=== PATIENT | male | born 1950 | race Caucasian/White ===

== ENCOUNTER → 2018-03-25 16:54 | Outpatient (CLI) | payer BC, SELFPAY ==
[2017-10-13 15:19] VITALS: BMI 41.8
[2018-03-25 18:06] LABS: PSA,Total- Diagnostic 0.03 ng/mL (0.0-4.0)
== END ==
PROVIDERS: Family Provider Preventive Medicine Occupational Medicine; PCP Preventive Medicine Occupational Medicine; Referring Provider Urology; Visit Provider Urology
DX: C61 Malignant neoplasm of prostate (principal)
CPT/HCPCS: 36415; 84153

== ENCOUNTER → 2018-12-30 10:09 | Outpatient (CLI) | payer BC, SELFPAY ==
[2018-10-05 10:48] VITALS: BMI 41.8
[2018-12-30 11:17] LABS: PSA,Total- Diagnostic 0.04 ng/mL (0.0-4.0)
== END ==
PROVIDERS: Family Provider Preventive Medicine Occupational Medicine; PCP Preventive Medicine Occupational Medicine; Referring Provider Urology; Visit Provider Urology
DX: C61 Malignant neoplasm of prostate (principal)
CPT/HCPCS: 36415; 84153

== ENCOUNTER → 2019-11-07 11:22 | Outpatient (CLI) | payer BC, SELFPAY ==
[2019-10-05 14:45] VITALS: BMI 40.4
[2019-11-07 11:51] LABS: Absolute Lymphocyte Count 1.73 X10^3/uL (0.83-4.51); Absolute Neutrophil Count 8.2 X10^3/uL (2.0-7.7); Basophil# 0.04 X10^3/uL; Basophil% 0.4 % (0-1); Eosinophil# 0.23 X10^3/uL; Eosinophils% 2.1 % (0-5); Hematocrit 43.7 % (40-54); Hemoglobin 13.7 g/dL (13.0-16.5); Lymphocyte # 1.73 X10^3/ul (4.0); Lymphocyte % 15.5 % (19-41); Mean Corp Hgb Conc 31.4 g/dL (32-36); Mean Corpuscular Hgb 29.3 pg (27.0-32.0); Mean Corpuscular Volume 93.4 fL (80-94); Mean Platelet Vol. 10.5 fl (6.2-12.0); Monocyte# 0.76 X10^3/uL; Monocyte% 6.8 % (0-10); NRBC Flagged by Analyzer 0 % (0-5); Neutrophil # 8.23 X10^3/uL (2.7-7.7); Neutrophil % 73.6 % (47-70); Platelet Count 233 K/mm3 (150-450); RBC Distribution Width CV 14.6 % (11.6-14.6); RBC Distribution Width SD 50.3 fl (35.1-43.9); Red Blood Count 4.68 M/mm3 (4.6-6.2); White Blood Count 11.2 K/mm3 (4.4-11.0)
[2019-11-07 11:55] LABS: ALB/GLOB Ratio 0.9 RATIO (0.9-2.4); AST(SGOT) 18 U/L (15-37); Alanine Aminotransfer ALT/SGPT 21 U/L (16-61); Albumin, Serum 3.4 g/dL (3.2-5.0); Alkaline Phosphatase 192 U/L (45-117); Anion Gap 6 (5-15); BUN 22 mg/dL (7-18); BUN/Creat Ratio 17.1 RATIO (10-20); Calcium,Total 9.3 mg/dL (8.5-10.1); Chloride 108 mmol/L (98-107); Creatinine, Serum 1.29 mg/dL (0.70-1.30); EST Glomerular Filtration Rate 59 mL/min (>60); Est Glom Filt Rate - Afr Amer 71 mL/min (>60); Globulin 3.8 g/dL (2.2-4.2); Glucose 108 mg/dL (74-106); PSA,Total- Diagnostic 0.09 ng/mL (0.0-4.0); Potassium 3.9 mmol/L (3.5-5.1); Protein, Total 7.2 g/dL (6.4-8.2); Sodium Level 143 mmol/L (136-145)
== END ==
PROVIDERS: Internal Medicine Medical Oncology; PCP Preventive Medicine Occupational Medicine; Referring Provider Urology; Visit Provider Urology
DX: C61 Malignant neoplasm of prostate (principal); C79.51 Secondary malignant neoplasm of bone
CPT/HCPCS: 36415; 80053; 84153; 85025

== ENCOUNTER → 2020-02-06 15:49 | Outpatient (CLI) | payer BC, SELFPAY ==
[2019-10-05 14:45] VITALS: BMI 40.4
[2020-02-06 17:03] LABS: PSA,Total- Diagnostic 0.19 ng/mL (0.0-4.0)
== END ==
PROVIDERS: PCP Preventive Medicine Occupational Medicine; Referring Provider Urology; Visit Provider Urology
DX: C61 Malignant neoplasm of prostate (principal)
CPT/HCPCS: 36415; 84153

== ENCOUNTER → 2020-05-08 12:06 | Outpatient (CLI) | payer BC, SELFPAY ==
[2019-10-05 14:45] VITALS: BMI 40.4
[2020-05-08 14:07] LABS: PSA,Total- Diagnostic 0.34 ng/mL (0.0-4.0)
== END ==
PROVIDERS: PCP Preventive Medicine Occupational Medicine; Referring Provider Urology; Visit Provider Urology
DX: C61 Malignant neoplasm of prostate (principal)
CPT/HCPCS: 36415; 84153

== ENCOUNTER → 2020-06-11 08:52 | Outpatient (CLI) | payer BC, SELFPAY ==
[2019-10-05 14:45] VITALS: BMI 40.4
--- NOTE | 2020-06-11 08:54 | NM_ITS ---
CLINICAL: 69-year-old male with reported history of carcinoma of the prostate. WHOLE BODY 99m Tc MDP RADIONUCLIDE BONE SCINTIGRAPHY COMPARISON: Whole body bone scintigraphy study dated 12/11/2016 FINDINGS: Following the intravenous administration of 27.0 mCi of 99m Tc MDP, whole body bone images reveal: 1. Increased radiopharmaceutical concentration is defined in the mid cervical spine posteriorly on the right, acromioclavicular and sternoclavicular compartments of both shoulders, fifth lumbar vertebra posteriorly on the right and left, knees bilaterally, right ankle, the right mid and forefoot, the left midfoot. 2. The remaining skeletal structures are scintigraphically unremarkable with normal-appearing renal images and urinary bladder activity identified. Enhanced tracer concentration is observed in the lesser trochanteric aspect of the left proximal femur most consistent with periostitis and/or trochanteric bursitis. There is asymmetric soft tissue thickening noted in the left lower extremity with facilitated uptake persistently visualized noted within the medial and to lesser extent lateral soft tissue compartments of the left lower extremity from the anatomic level of the proximal to distal tibial diaphysis. NM/Bone Scan Whole Body IMPRESSION: 1. The increase in radiopharmaceutical concentration observed in the cervical and lumbar spine, bilateral shoulders, right left knees, the right ankle, the bilateral midfoot, the right forefoot is most consistent with degenerative arthritis. 2. Soft tissue findings defined in the left lower extremity are unchanged compared to the examination dated 12/11/2016. 3. Overall compared to the previous whole body bone scintigraphy study dated 12/11/2016, there is no significant interval change. No current typical scintigraphic evidence of diffuse axial skeletal metastatic disease is defined on the present examination. Electronically Signed: Tomas Chavez DO at 22:46 EDT Tel , Service support ,
== END ==
PROVIDERS: PCP Preventive Medicine Occupational Medicine; Referring Provider Urology; Visit Provider Urology
DX: C61 Malignant neoplasm of prostate (principal)
CPT/HCPCS: 78306; A9503

== ENCOUNTER → 2020-09-26 07:59 | Outpatient (CLI) | payer BC, SELFPAY ==
[2019-10-05 14:45] VITALS: BMI 40.4
--- NOTE | 2020-09-26 08:12 | BD_ITS ---
STUDY: DUAL ENERGY X-RAY ABSORPTIOMETRY / DXA REASON FOR EXAM: Male, 69 years old. 733.00OsteoporosisBONE DENSITY REASON FOR EXAM. History of prostate cancer. TECHNIQUE: Bone Mineral Density (BMD) measurements of lumbar spine and bilateral hips were obtained. COMPARISON: None. FINDINGS: Lumbar Spine (L1-L4): g/cm2 (0.909) / T-score (-1.7) / Z-score (-0.8) Findings are suggestive of osteopenia with a moderate fracture risk. Left Femur Total: g/cm2 (0.908) / T-score (-0.8) / Z-score (-0.1) Left Femoral Neck: g/cm2 (0.739) / T-score (-1.4) / Z-score (-0.2) Right Femur Total: g/cm2 (0.962) / T-score (-0.5) / Z-score (0.2) Right Femoral Neck: g/cm2 (0.795) / T-score (-1.0) / Z-score (0.2) BD/Dexa Bone Density Study IMPRESSION: The patient is considered osteopenic as outlined below according to World [employer] Organization (WHO) criteria with a moderate fracture risk. Reference Information: The T-score is the number of standard deviations above or below the standard which is normal for young adults at their peak bone mineral density. The World Health Organization (WHO) interprets the T-scores as follows: Above -1 Normal bone density Between -1 and -2.5 Osteopenia Equal to / or below -2.5 Osteoporosis As a practical clinical guideline, osteopenia may be graded as follows: Mild -1 through -1.5 Moderate -1.6 through -2.0 Severe -2.1 through -2.4 The Z-score is the number of standard deviations above or below age-matched controls. A Z-score of less than -1.5 would be considered abnormal. References: 1. NIH Osteoporosis and Related Bone Diseases www osteo.org 2. International Society for Clinical Densitometry www iscd.org 3. National Osteoporosis Foundation www nof.org Electronically Signed: Kenneth Bailon MD at 20:15 EDT , Service support ,
== END ==
PROVIDERS: PCP Preventive Medicine Occupational Medicine; Referring Provider Urology; Visit Provider Urology
DX: M81.8 Other osteoporosis without current pathological fracture (principal); Z85.46 Personal history of malignant neoplasm of prostate
CPT/HCPCS: 77080

== ENCOUNTER → 2020-12-04 13:44 | Outpatient (CLI) | payer BC, SELFPAY ==
[2020-12-04 15:45] LABS: PSA,Total- Diagnostic 1.15 ng/mL (0.0-4.0)
== END ==
PROVIDERS: PCP Preventive Medicine Occupational Medicine; Referring Provider Urology; Visit Provider Urology
DX: C61 Malignant neoplasm of prostate (principal)
CPT/HCPCS: 36415; 84153

== ENCOUNTER → 2022-03-11 | Outpatient (CLI) | payer BC, SELFPAY ==
--- NOTE | 2022-03-11 08:32 | CT_ITS ---
STUDY: CT CHEST, ABDOMEN T PELVIS WITH CONTRAST REASON FOR EXAM: Male, 71 years old. PROSTATE CANCER 7 YRS AGO. PRIOR PROSTECTOMY AND CHEMO. RISING PSA NOW RADIATION DOSAGE (If Supplied By Facility): CTDIvol = ( 23.96 ) mGy, DLP = ( 2154.48 ) mGycm TECHNIQUE: Transaxial imaging was performed following intravenous administration of IV 100mL Isovue-300. Individualized dose optimization techniques were used for this CT. COMPARISON: CT abdomen and pelvis December 19, 2016. FINDINGS: CHEST Lung bases are incompletely imaged within the [id number]. There is no demonstrated pleural abnormality. Normal heart and pericardium. Calcified mediastinal nodes. Calcified bilateral hilar nodes. Normal unenhanced pulmonary arteries. Normal aorta arch and descending thoracic aorta. Multiple sclerotic lesions noted throughout the thoracic spine and ribs. There is no demonstrated abnormality of the visualized upper abdomen. ABDOMEN The visualized lung bases are unremarkable. The visualized portions of the heart are within normal limits. Normal liver. Cholelithiasis. Normal spleen. Normal pancreas. Normal bilateral adrenal glands. 2 cm simple right renal cortical cyst. No further follow-up required as it appears simple/benign. Normal left kidney. Normal visualized stomach. Normal small intestine. Colonic diverticulosis. The appendix is visualized and appears normal. Normal abdominal aorta. Normal inferior vena cava. Normal retroperitoneum. Fat-containing umbilical hernia. Multiple sclerotic lesions noted throughout the thoracolumbar spine demonstrated interval progression especially the L2 vertebral body. PELVIS Normal urinary bladder. Normal visualized small intestine. Normal visualized colon. There is no pelvic fluid. There is no pelvic lymphadenopathy or mass lesion. Normal visualized pelvic arteries. Normal abdominal wall. Sclerotic lesions noted within the S1 vertebral body CT/CT Chest, Abd, Pel w/Contrast IMPRESSION: Cholelithiasis. Sclerotic lesions in thoracolumbar spine, ribs and pelvis. This demonstrates interval progression consistent with bony metastatic disease of the prostate. Electronically Signed: Ricci Fry MD at 23:37 EST ,
== END | disposition home or self-care (01) ==
PROVIDERS: PCP Preventive Medicine Occupational Medicine; Referring Provider Nurse Practitioner Family; Visit Provider Nurse Practitioner Family
DX: C61 Malignant neoplasm of prostate (principal); C79.51 Secondary malignant neoplasm of bone; K80.20 Calculus of gallbladder without cholecystitis without obstruction
CPT/HCPCS: 71260; 74177; Q9967

== ENCOUNTER → 2022-03-14 | Outpatient (CLI) | payer BC, SELFPAY ==
--- NOTE | 2022-03-14 09:16 | NM_ITS ---
CLINICAL: 71-year-old male with history of primary prostate carcinoma. WHOLE BODY 99m Tc MDP RADIONUCLIDE BONE SCINTIGRAPHY COMPARISON: Previous whole body bone scintigraphy study dated 06/11/2020 FINDINGS: Following the intravenous administration of 25.7 mCi of 99m Tc MDP, whole body bone images reveal: 1. Increased radiopharmaceutical concentration is newly identified and persistently visualized in the cervical, thoracic and lumbar spine, the posterior sacrum, the right sacroiliac joint, both shoulders, the visualized knee articulations bilaterally, the right ankle. 2. Facilitated uptake is noted in the right posterior seventh rib. 3. The remaining skeletal structures are scintigraphically unremarkable with normal-appearing renal images and urinary bladder activity identified. Uptake remains expressed in the medial and lateral soft tissue compartments of the left lower extremity, unchanged compared to the examination dated 06/11/2020. NM/Bone Scan Whole Body IMPRESSION: 1. The increase in radiopharmaceutical concentration both newly apparent and redemonstrate in the cervical, thoracic and lumbar spine, sacrum, the right sacroiliac joint, the shoulders bilaterally, the right-left knees and right ankle are most consistent with degenerative arthrosis. Plain film radiography correlation is recommended in the thoracic and upper lumbar spine. 2. Increased uptake noted in the right posterior seventh rib is may represent trauma-fracture. Plain film radiography correlation may also be of benefit in this location. 3. Overall compared to the previous whole body bone scintigraphy study dated 06/11/2020, newly identified increased uptake noted in the thoracic and lumbar spine, the right posterior seventh rib warrant plain film radiography correlation as defined above. Electronically Signed: Tomas Chavez, at 9:48 EST ,
== END | disposition home or self-care (01) ==
LOC: NM 09:14
PROVIDERS: PCP Preventive Medicine Occupational Medicine; Visit Provider Nurse Practitioner Family
DX: C61 Malignant neoplasm of prostate (principal); C79.51 Secondary malignant neoplasm of bone
CPT/HCPCS: 78306; A9503

== ENCOUNTER → 2023-08-21 | Outpatient (CLI) | payer BC, SELFPAY ==
--- NOTE | 2023-08-21 16:44 | CT_ITS ---
STUDY: CT ABDOMEN AND PELVIS WITH CONTRAST REASON FOR EXAM: Male, 72 years old. ABDOMINAL PAIN-PROSTSTE CA RADIATION DOSAGE (If Supplied By Facility): CTDIvol = ( 17.04 ) mGy, DLP = ( 1339.00 ) mGycm TECHNIQUE: Transaxial images were obtained from the dome of the diaphragm to the symphysis pubis with oral contrast. Oral and amp; IV Readi-CAT and amp; 100mL Isovue-300 was administered. Sagittal and coronal images were reconstructed. Individualized dose optimization techniques were used for this CT. COMPARISON: None. FINDINGS: The visualized lung bases are unremarkable. The visualized portions of the heart are within normal limits. Normal liver. There is a solitary gallstone. Normal spleen. Normal pancreas. Normal bilateral adrenal glands. Normal right kidney. Normal left kidney. Normal visualized stomach. Normal small intestine. There are multiple colonic diverticula consistent with diverticulosis. The appendix is visualized and appears normal. Normal abdominal aorta. Normal inferior vena cava. Normal retroperitoneum. Normal urinary bladder. There is a small umbilical hernia containing fat. Multiple sclerotic lesions within the thoracolumbar spine worrisome for blastic metastases. CT/Abdomen/Pelvis WITH Contrast IMPRESSION: 1. Suspect blastic skeletal metastases but no lymphadenopathy. 2. Cholelithiasis. 3. Sigmoid diverticulosis without diverticulitis. Electronically Signed: Tomas Cagle MD at 17:28 EDT ,
== END | disposition home or self-care (01) ==
LOC: CT 16:42
PROVIDERS: PCP Preventive Medicine Occupational Medicine; Referring Provider Internal Medicine Medical Oncology; Visit Provider Internal Medicine Medical Oncology
DX: C61 Malignant neoplasm of prostate (principal); C79.51 Secondary malignant neoplasm of bone; R10.30 Lower abdominal pain, unspecified
CPT/HCPCS: 74177; Q9967

== ENCOUNTER → 2023-08-24 | Outpatient (CLI) | payer BC, SELFPAY ==
--- NOTE | 2023-08-24 08:48 | NM_ITS ---
CLINICAL: 72-year-old male with history of primary prostate carcinoma. WHOLE BODY 99m Tc MDP RADIONUCLIDE BONE SCINTIGRAPHY COMPARISON: Previous whole body bone scintigraphy study dated 03/14/2022 FINDINGS: Following the intravenous administration of 24.7 mCi of 99m Tc MDP, whole body bone images reveal: 1. Increased radiopharmaceutical concentration is newly apparent in the left anterior first fourth and sixth ribs heterogeneous in presentation, persistently defined in the right posterior seventh rib. 2. Facilitated tracer uptake is noted in the acromioclavicular, glenohumeral and sternoclavicular compartments of both shoulders, the bilateral knees, the right ankle, the right-left midfoot and right forefoot, the eighth through 12th thoracic vertebra. 3. The remaining skeletal structures are scintigraphically unremarkable with normal-appearing renal images and urinary bladder activity identified. Currently visualized uptake in the eighth and ninth right posterior ribs oriented in the longitudinal plane, and right anterior chest wall at the costochondral junction most consistent with trauma-fracture. NM/Bone Scan Whole Body IMPRESSION: 1. Both newly defined and persistently visualized increased uptake noted in the left anterior and right posterior ribs likely represents osteoblastic turnover attributed to skeletal metastatic disease. Plain film radiography correlation may be of benefit. 2. Degenerative arthritis is defined in the bilateral shoulders, right-left knees, the right ankle, the midfoot bilaterally, the right forefoot, the lower thoracic spine. 3. Overall compared to the examination dated 03/14/2022, there is potential expression of skeletal metastatic disease. Electronically Signed: Tomas Chavez DO at 12:37 EDT ,
== END | disposition home or self-care (01) ==
PROVIDERS: PCP Preventive Medicine Occupational Medicine; Referring Provider Internal Medicine Medical Oncology; Visit Provider Internal Medicine Medical Oncology
DX: C61 Malignant neoplasm of prostate (principal)
CPT/HCPCS: 78306; A9503

== ENCOUNTER 2024-11-18 09:56 | Day surgery (SDC) | payer BC, SELFPAY ==
--- NOTE | 2024-11-11 16:30 | PAT.ANESEVAL ---
Pre-Assessment Diagnosis/Proposed Procedure Planned Operative Procedure(s): INSERTION VASCULAR PORT RIGHT POSS LEFT Anesthesia History Anesthesia History - osteopathic neurologist: Anesthesia History - osteopathic neurologist Hx Hospitalization No 11/11/24 10:03 Any Problems With Anesthesia No 11/11/24 10:03 Cholinesterase deficiency No 11/11/24 10:03 You/Your Family Experience No 11/11/24 10:03 fever (hyperthermia) with Relationship Recent Exposure to Contagious No 10/18/14 06:52 Disease Does patient have nerve No 11/11/24 10:03 stimulator Patient instructed to have device shut off --Does patient have Pacemaker or ICD? When Was Last Pacemaker Check QUESTION #4 FULL TEXT: You/Your Family Experience fever (hyperthermia) with Anesthesia Last Oral Intake Last Oral intake: Last Oral Intake NPO since Meds taken in AM with sips of water? Meds patient instructed to take am of surgery PONV PONV - osteopathic neurologist: PONV - osteopathic neurologist Female No 11/11/24 10:03 HX of Motion Sickness No 11/11/24 10:03 HX of N/V After Surgery No 11/11/24 10:03 Non-Smoker Yes 11/11/24 10:03 Duration of Surgery greater No 11/11/24 10:03 than 60 minutes Number of Risk Factors 1 11/11/24 10:03 PONV Score Low Risk 11/11/24 10:03 Height & Weight Height & Weight: Anesthesia: Height & Weight Height 5 ft 9 in 11/09/24 10:34 Respiratory Assessment Respiratory Assessment - osteopathic neurologist: Respiratory Tract Infection Hx - osteopathic neurologist Hx Respiratory Tract Infection No 11/11/24 10:03 STOP Sleep Apnea STOP Sleep Apnea - osteopathic neurologist: STOP Sleep Apnea - osteopathic neurologist Hx Hypertension Yes: CONTROLLED WITH MEDS 11/11/24 10:03 Hx Sleep Apnea Yes 11/11/24 10:03 CPAP No 11/11/24 10:03 BIPAP Yes 11/11/24 10:03 Do you snore loudly (louder than talking or can be heard Do you often feel tired/ fatigued/ sleepy during daytime? Has anyone observed you stop breathing during sleep? STOP Results Positive 11/11/24 10:03 QUESTION #5 FULL TEXT : Do you snore loudly (louder than talking or can be heard through closed doors)? Tobacco Use History Tobacco Use History - osteopathic neurologist: Tobacco Use History - osteopathic neurologist Tobacco Use Smoking Status Never smoker 11/11/24 10:03 Hx Tobacco Use No 11/11/24 10:03 Years Smoking Packs Smoked per Day Smoking Cessation Date was within the last 15 years Hx Smoking Cessation Date Hx Smoking Cessation Counseling Hematologic Medial History Hematologic Hx - osteopathic neurologist: Hematologic Medical Hx - trading assistant Hx of Blood Transfusion No 11/11/24 10:03 Hx of Transfusion in last 3 No 11/11/24 10:03 Months Date of Last Transfusion (if within last 3 months) Ever experience any problems No 11/11/24 10:03 with transfusion(s)? Specify any problems Hx of Preganancy in last 3 N/A 11/11/24 10:03 Months Nurse Filling Out Transfusion DSCHRIBER 11/11/24 10:03 & Questions: Date: 11/11/24 11/11/24 10:03 Time: 10:04 11/11/24 10:03 Patient unable to answer at this time (ie. confused, unrespo /Reproduction History /Reproductive History - osteopathic neurologist: /Reproductive Hx- osteopathic neurologist Hx Now No 11/11/24 10:03 Gestational Age (in weeks): EDC: Hx Hx Para Hx Section SAB No 11/11/24 10:03 [facility], [facility] Medical History (Updated 11/11/24 @ 10:22 by Verónica Olmos) History of open leg wound Wears glasses Cancer Alcohol use History of steroid therapy Low iron High cholesterol Pulmonary embolism Back pain Migraine headache History of hiatal hernia History of diverticulitis Gastric reflux Non-smoker BiPAP (biphasic positive airway pressure) dependence Shortness of breath on exertion History of pain when walking Skin cancer Ulcer Hyperlipidemia Hypertension Home Medications ?Medication ?Instructions ?Recorded ?Last Taken ?Type Olmesartan/Hydrochlorothiazide 1 tab PO DAILY 10/10/14 Unknown History [Benicar Hct 40-12.5 Mg Tab] carvedilol 12.5 mg tablet 12.5 mg PO BID 10/10/14 10/17/14 22:00 History diltiazem HCl 300 mg 300 mg PO QHS 10/10/14 Unknown History capsule,extended release 24 hr multivitamin with folic acid 400 1 tab PO DAILY 01/18/15 Unknown History mcg tablet (Thera) pantoprazole 40 mg tablet,delayed 40 mg PO DAILY 01/18/15 Unknown History release acetaminophen 325 mg tablet 325 mg PO Q6H PRN PRN Pain 05/15/16 Unknown History (Tylenol) ipratropium bromide 42 mcg (0.06 2 spray BID 05/15/16 Unknown History %) nasal spray prednisone 5 mg tablet 5 mg PO BID 03/09/17 Unknown History abiraterone 500 mg tablet 1,000 mg (2 x 500 mg) PO DAILY #60 12/21/23 Unknown Rx TABLETS Allergy/AdvReac Type Severity Reaction Status Date / Time Penicillins (PCN) Allergy Severe Unknown Verified 11/11/24 09:59 corn Allergy Intermediate Hives Verified 11/11/24 09:59 Family History Father Skin cancer Heart disease Surgical History (Updated 11/11/24 @ 10:15 by Verónica Olmos) Hx of right cataract extraction Hx of left cataract extraction History of esophagogastroduodenoscopy (EGD) Hx of colonoscopy History of tonsillectomy History of prostatectomy Social History Smoking Status: Never smoker Audit: Pertinent Findings Pertinent Findings EKG Perinent findings: EKG 10 October 2014. Sinus rhythm with occasional premature ventricular complexes. Otherwise normal EKG Recommendation Anesthesia Recommendation Anesthesia recommendation: OPTIMIZED for anesthesia
[2024-11-18] VITALS (10 sets, daily range): BP systolic 120–144; BP diastolic 59–99; PULSE 60–67; RESP 16; TEMP 36.4–37.2; O2SAT 93–99; BMI 37.6
--- NOTE | 2024-11-18 10:07 | PCM.HP.BLA ---
History and Physical Date of Admission: 11/18/24 Date of Service: 11/16/24 MR#: [id number] Acct: [id number] Name: SOL NEWBERRY Rep #: [id number] : 1950 Provider: Dr. Cadence Marques MD Age/Sex: 74/M Location: [facility] Status: Signed Intake Vital Signs 11/09/2509:34 11/16/2512:29 Height 5 ft 9 in 5 ft 9 in Weight: 263 lb 1 oz 262 lb 8 oz BMI 38.8 38.7 BP 128/80 H 128/80 H Blood Pressure Location Rt brachial Rt brachial Position Sitting Sitting Respiration 18 18 Pulse 64 63 Pulse Source Monitor Monitor Temp 97.6 F L 97.6 F L Temp Source Temporal Pulse Oximetry (%) 94 98 Oxygen Delivery Method room air room air Intake Visit Reasons: PORT PLACEMENT Chief Complaint: port placement Accompanied by: Is patient in pain?: No Allergies Penicillins (PCN) Allergy (Severe, Verified 11/16/24 13:31) Unknown corn Allergy (Intermediate, Verified 11/16/24 13:31) Hives Medications ?Medication ?Instructions ?Recorded ?Confirmed ?Type Olmesartan/Hydrochlorothiazide 1 tab PO DAILY 10/10/14 11/16/24 History [Benicar Hct 40-12.5 Mg Tab] carvedilol 12.5 mg tablet 12.5 mg PO BID 10/10/14 11/16/24 History diltiazem HCl 300 mg 300 mg PO QHS 10/10/14 11/16/24 History capsule,extended release 24 hr multivitamin with folic acid 400 1 tab PO DAILY 01/18/15 11/16/24 History mcg tablet (Thera) pantoprazole 40 mg tablet,delayed 40 mg PO DAILY 01/18/15 11/16/24 History release acetaminophen 325 mg tablet 325 mg PO Q6H PRN PRN Pain 05/15/16 11/16/24 History (Tylenol) ipratropium bromide 42 mcg (0.06 2 spray BID 05/15/16 11/16/24 History %) nasal spray prednisone 5 mg tablet 5 mg PO BID 03/09/17 11/16/24 History abiraterone 500 mg tablet 1,000 mg (2 x 500 mg) PO DAILY #60 12/21/23 11/16/24 Rx TABLETS Have you fallen in the past year?: No PFSH Medical History History of open leg wound Wears glasses Cancer Alcohol use History of steroid therapy Low iron High cholesterol Pulmonary embolism Back pain Migraine headache History of hiatal hernia History of diverticulitis Gastric reflux Non-smoker BiPAP (biphasic positive airway pressure) dependence Shortness of breath on exertion History of pain when walking Skin cancer Ulcer Hyperlipidemia Hypertension Surgical History Hx of right cataract extraction Hx of left cataract extraction History of esophagogastroduodenoscopy (EGD) Hx of colonoscopy History of tonsillectomy History of prostatectomy Family History Father Skin cancer Heart disease Social History Smoking Status: Never smoker HPI HPI HPI: 74-year-old male presents for port placement due to metastatic prostate cancer. Patient is planning to start treatment on 11/21. ROS General General: No weight change, appetite, fatigue, colon cancer, breast cancer or weakness HEENT HEENT: No difficulty swallowing, eye injury, eye surgery, swollen glands or hoarseness Endo Endocrine: No thyroid disease, diabetes mellitus, thyroid cancer, Hair loss, heat intolerance or cold intolerance Skin Skin: No rash or changing moles Musc Musculoskeletal: Yes back problems; No arthritis, rheumatoid arthritis, gout or joint pain Cardio Cardiovascular: Yes high blood pressure; No murmur, pacemaker, heart disease, atrial fibrillation, heart attack, heart stent, palpitations, shortness of breath with exertion or chest pain Psych Psychiatric: No depression, anxiety or hearing voices Resp Respiratory: No shortness of breath, Yes sleep apnea, No cough, No COPD, No asthma, No emphysema and No wheezing Gastro Gastrointestinal: No abdominal pain, No nausea or vomiting, No diarrhea, No constipation, No blood in stool, Yes acid reflux, Yes hemorrhoids, No ulcers, No gallbladder problem and No black,tarry stools Dago Hematologic: No blood thinners, No blood disorders, No bleeding, No anemia and No blood clots Neuro Neurologic: No numbness, No tingling and No weakness Exam Const General: cooperative, healthy appearing, comfortable and no acute distress [facility] Head: normocephalic and atraumatic Neck Neck: supple Chest Other: Palpation bilateral upper chest normal Resp Effort & Inspection: normal respiratory effort Cardio Rate: regular rate GI Inspection: non-distended Skin General: no rashes or lesions noted Neuro General: CN's II-XI intact bilaterally Extrem General: no clubbing Psych Mental Status: mental status grossly normal Attitude: cooperative Assessment and Plan Assessment and Plan (1) Encounter for care related to Port-a-Cath: Status: Acute (2) Prostate cancer metastatic to bone: Status: Chronic Comment: Prostate cancer stage IV, bony disease now on Eligard, Zytiga and prednisone. CT 03/11/2022 shows progressive disease. Bone scan 03/14/2022 shows new lesions in T5 and L2, R 7th rib. PSMA PET/CT on 03/25/2022 showed activity in T5 and L2 vertebral bodies. S/P SBRT to T5 and L2 from 04/18/2022 to 04/28/2022. PSA elise to 12. Comes for follow up. Bone scan on 08/24/2023 reviewed, shows new L anterior rib activities and R posterior rib activity. CT a/p on 08/21/2023 reviewed, shows no adenopathy. S/P SBRT to T7, left anterior ribs, and left ischium, PSA 2.1 on 06/23/2024. He had good response to SBRT. PSA elise to 23. Had PSMA PET/CT done, comes for follow up. PSMA PET/CT shows multiple hypermetabolic activities in axial, appendicular skeleton, ?retroperitoneal node. Progressive disease. Discussed further management-adding chemotherapy-Taxotere to [facility] oskar. Pt agreed. Plan I have discussed above with the patient- Port-a-Cath placement. Right possible left IJ Patient has been counseled as to the risks/benefits of the procedure. I have explained the risks of the surgery, including but not limited to: infection, bleeding, injury to any blood vessels/nerves, injury to lungs (such as pneumothorax or hemothorax and need for chest tube), not having any access, nonfunctioning of port due to thrombosis, infection of port, etc. the patient understands and agrees to proceed. I have answered all the patient's questions to the patient?s satisfaction and the patient has no further questions. Cadence Marques M.D. Pager: [phone] [facility] [address] [place] [address], [facility], [address] [place] [address] Office: [phone] Coding Level of Care Code Off vis,new,level 3 Diagnoses Encounter for care related to Port-a-Cath Z45.2 Prostate cancer metastatic to bone C61; C79.51 Clinical Quality Measures Falls Risk Screening/Assistive Devices Have you fallen in the past year?: No 11/17/24 1202 <Electronically signed by Cadence Marques MD> Date Cadence Marques MD
--- NOTE | 2024-11-18 10:42 | PCM.PRE.AN2 ---
ASA Classification* ASA Classification ASA Classification: 2 Assessment & Plan Anesthesia* Anesthesia Assessment Anesthesia Assessment: Discussed sedation and/or anesthesia options, risks, benefits, and alternatives with patient/parents/legal guardian/POA. Questions invited. The patient/parents/legal guardian/POA seems to understand and agrees to proceed with anesthesia plan. Reviewed the physical assessment, medical history, allergy history and patient home medications list prior to surgery/procedure/anesthetic and documented any changes. Performed airway and anesthesia risk assessments. Anesthesia Type Anesthesia Type: MAC Anesthesia Focused Assessment* Temperature: 97.6 F Pulse Rate: 65 Blood Pressure: 131/73 Respiratory Rate: 16 Pulse Ox: 99 Airway Assessment Mouth opens: >3 cm Mallampati Score: II Labs Anesthesia Preop lab: CBC WBC, (4.4-11.0) 7.8 K/mm3 10/11/24, 16:43 RBC, (4.6-6.2) 4.89 M/mm3 10/11/24, 16:43 Hgb, (13.0-16.5) 12.9 g/dL L 10/11/24, 16:43 Hct, (40-54) 41.0 % 10/11/24, 16:43 Plt Count, (150-450) 262 K/mm3 10/11/24, 16:43 CHEMISTRY Potassium, (3.3-5.1) 4.6 mmol/L 10/11/24, 13:43 Sodium, (133-145) 138 mmol/L 10/11/24, 13:43 Magnesium, (1.6-2.6) 1.9 mg/dL 03/14/21, 13:17 Phosphorus, (2.5-4.9) 2.9 mg/dL 03/14/21, 13:17 BUN, (4-19) 26 mg/dL H 10/11/24, 13:43 Creatinine, (0.70-1.20) 1.37 mg/dL H 10/11/24, 13:43 Glucose, (70-99) 90 mg/dL 10/11/24, 13:43 COAG Pre-Assessment Diagnosis/Proposed Procedure Planned Operative Procedure(s): INSERTION VASCULAR PORT RIGHT POSS LEFT Anesthesia History Anesthesia History - utility assembler: Anesthesia History - utility assembler Hx Hospitalization No 11/11/24 10:03 Any Problems With Anesthesia No 11/11/24 10:03 Cholinesterase deficiency No 11/11/24 10:03 You/Your Family Experience No 11/11/24 10:03 fever (hyperthermia) with Relationship Recent Exposure to Contagious No 11/18/24 10:24 Disease Does patient have nerve No 11/11/24 10:03 stimulator Patient instructed to have device shut off --Does patient have Pacemaker No 11/18/24 10:24 or ICD? When Was Last Pacemaker Check QUESTION #4 FULL TEXT: You/Your Family Experience fever (hyperthermia) with Anesthesia Last Oral Intake Last Oral intake: Last Oral Intake NPO since 08:30 11/18/24 10:24 Meds taken in AM with sips of Yes 11/18/24 10:24 water? Meds patient instructed to take am of surgery PONV PONV - utility assembler: PONV - utility assembler Female No 11/11/24 10:03 HX of Motion Sickness No 11/11/24 10:03 HX of N/V After Surgery No 11/11/24 10:03 Non-Smoker Yes 11/11/24 10:03 Duration of Surgery greater No 11/11/24 10:03 than 60 minutes Number of Risk Factors 1 11/11/24 10:03 PONV Score Low Risk 11/11/24 10:03 Height & Weight Height & Weight: Anesthesia: Height & Weight Height 5 ft 10 in 11/18/24 10:24 Weight: 119 kg 11/18/24 10:24 Body Mass Index (BMI) 37.6 11/18/24 10:24 Respiratory Assessment Respiratory Assessment - utility assembler: Respiratory Tract Infection Hx - utility assembler Hx Respiratory Tract Infection No 11/11/24 10:03 STOP Sleep Apnea STOP Sleep Apnea - utility assembler: STOP Sleep Apnea - utility assembler Hx Hypertension Yes: CONTROLLED WITH MEDS 11/11/24 10:03 Hx Sleep Apnea Yes 11/11/24 10:03 CPAP No 11/11/24 10:03 BIPAP Yes 11/11/24 10:03 Do you snore loudly (louder than talking or can be heard Do you often feel tired/ fatigued/ sleepy during daytime? Has anyone observed you stop breathing during sleep? STOP Results Positive 11/11/24 10:03 QUESTION #5 FULL TEXT : Do you snore loudly (louder than talking or can be heard through closed doors)? Tobacco Use History Tobacco Use History - utility assembler: Tobacco Use History - utility assembler Tobacco Use Smoking Status Never smoker 11/11/24 10:03 Hx Tobacco Use No 11/11/24 10:03 Years Smoking Packs Smoked per Day Smoking Cessation Date was within the last 15 years Hx Smoking Cessation Date Hx Smoking Cessation Counseling Hematologic Medial History Hematologic Hx - utility assembler: Hematologic Medical Hx - offal roller Hx of Blood Transfusion No 11/11/24 10:03 Hx of Transfusion in last 3 No 11/11/24 10:03 Months Date of Last Transfusion (if within last 3 months) Ever experience any problems No 11/11/24 10:03 with transfusion(s)? Specify any problems Hx of Preganancy in last 3 N/A 11/11/24 10:03 Months Nurse Filling Out Transfusion DSCHRIBER 11/11/24 10:03 & Questions: Date: 11/11/24 11/11/24 10:03 Time: 10:04 11/11/24 10:03 Patient unable to answer at this time (ie. confused, unrespo /Reproduction History /Reproductive History - utility assembler: /Reproductive Hx- utility assembler Hx Now No 11/11/24 10:03 Gestational Age (in weeks): EDC: Hx Hx Para Hx Section SAB No 11/11/24 10:03 Active Medications Active Medications: Current Medications Generic Name Dose Route Start Last Admin Trade Name Freq PRN Reason Stop Dose Admin Clindamycin Phosphate 900 mg in 50 mls @ 75 mls/hr 11/18/24 11:45 Cleocin IV 11/18/24 12:24 INTRAOP ONE Lactated Ringer's 1,000 mls @ 15 mls/hr 11/18/24 10:45 IV .Q48H [place] PFSH Medical History History of open leg wound Wears glasses Cancer Alcohol use History of steroid therapy Low iron High cholesterol Pulmonary embolism Back pain Migraine headache History of hiatal hernia History of diverticulitis Gastric reflux Non-smoker BiPAP (biphasic positive airway pressure) dependence Shortness of breath on exertion History of pain when walking Skin cancer Ulcer Hyperlipidemia Hypertension Home Medications ?Medication ?Instructions ?Recorded ?Last Taken ?Type Olmesartan/Hydrochlorothiazide 1 tab PO DAILY 10/10/14 11/18/24 History [Benicar Hct 40-12.5 Mg Tab] carvedilol 12.5 mg tablet 12.5 mg PO BID 10/10/14 11/18/24 History diltiazem HCl 300 mg 300 mg PO QHS 10/10/14 Unknown History capsule,extended release 24 hr multivitamin with folic acid 400 1 tab PO DAILY 01/18/15 Unknown History mcg tablet (Thera) pantoprazole 40 mg tablet,delayed 40 mg PO DAILY 01/18/15 11/17/24 History release acetaminophen 325 mg tablet 325 mg PO Q6H PRN PRN Pain 05/15/16 Unknown History (Tylenol) ipratropium bromide 42 mcg (0.06 2 spray BID 05/15/16 Unknown History %) nasal spray prednisone 5 mg tablet 5 mg PO BID 03/09/17 11/18/24 History abiraterone 500 mg tablet 1,000 mg (2 x 500 mg) PO DAILY #60 12/21/23 11/18/24 Rx TABLETS Allergy/AdvReac Type Severity Reaction Status Date / Time Penicillins (PCN) Allergy Severe Unknown Verified 11/16/24 13:31 corn Allergy Intermediate Hives Verified 11/16/24 13:31 Family History Father Skin cancer Heart disease Surgical History Hx of right cataract extraction Hx of left cataract extraction History of esophagogastroduodenoscopy (EGD) Hx of colonoscopy History of tonsillectomy History of prostatectomy Social History Smoking Status: Never smoker Review of Systems (Anesthesia) ROS Narrative System reviewed and no additional complaints, except as documented.
[2024-11-18] MEDS: Lactated Ringers 1,000 ML 15 ML IV (10:59)
[2024-11-18] MEDS: Lidocaine 1% (5 ml sdv) 5 ML Vial IV (12:22)
[2024-11-18] MEDS: Midazolam 2 MG/2 ML Syringe IV (12:39)
[2024-11-18] MEDS: Lidocaine 1% /Epi 1:100 (20ml) 20 ML Vial (12:41)
--- NOTE | 2024-11-18 12:56 | RAD_ITS ---
PROCEDURE: CHEST 1 VIEW (PORTABLE) 11/18/2024 REASON FOR EXAM: PORT TECHNIQUE: Frontal view of the chest. COMPARISON: None FINDINGS: Hardware: Port overlying right chest wall with tip in cavoatrial junction. Heart: Heart size is mildly enlarged. Lungs: Bibasilar atelectasis. Patchy opacity within left lower lung. No pneumothorax. Trace right pleural effusion. Bones: Degenerative changes of visualized spine and bilateral shoulder joints. RAD/Chest 1 View (Portable) IMPRESSION: Port overlying right chest wall with tip in cavoatrial junction. No sizable la rge pneumothorax is visualized. Reading Location: [id number]
--- NOTE | 2024-11-18 12:56 | PCM.OPRPT ---
Operative Report (Standard) Operative Information Date of Procedure: 11/18/24 Pre-Operative Diagnosis: Z45.2, metastatic prostate cancer Post-Operative Diagnosis: Same Surgery/Procedure Performed: Placement of right IJ Port-A-Cath Use of ultrasound Use of fluoroscopy administration assistant: No Type of Anesthesia: Local MAC RN Documented Start/Stop Times: Operation Date: 11/18/24 11:45 Case Time Into Pre-Op 11/18/24 10:22 Out of Pre-Op 11/18/24 12:10 Anesthesia Start 11/18/24 12:11 Into Room 11/18/24 12:11 Procedure Start 11/18/24 12:27 Procedure End 11/18/24 12:52 Anesthesia End 11/18/24 12:55 Out of Room 11/18/24 12:55 Procedure Start Time: 12:27 Procedure Stop Time: 12:52 Select all DRAINS/GRAFTS/IMPLANTS that apply: Implanted device Implanted device details: [employer] PowerPort isp M.R.I. 6Fr Lot [id number] Special Medications: Clindamycin 900 mg IV x 1 Estimated Blood Loss: < 10 cc Specimen collected: No Description of surgery: After informed consent was given, the patient was brought to the operating room and placed in the supine position. Appropriate time out protocol was followed. Patient was then given IV conscious sedation for anesthesia. The patient's right upper chest and neck were then prepped with a surgical skin preparation and sterile surgical drapes were placed. After proper landmarks were ascertained, the skin at the upper right chest area was then infiltrated with 1:1 mixture of 1% lidocaine with epinephrine and 0.5% marcaine. A needle trocar was then inserted into the right internal jugular vein with ultrasound guidance-multiple vessels were viewed with u/s and the right IJ was chosen-- and there was good aspiration of venous blood. A wire was then threaded into the needle trocar and this was visualized under fluoroscopy to ensure that the wire was in the superior vena cava. Once this was done, then the needle trocar was removed. A small skin lasha was made with an 11 blade knife at the wire entrance site. The dilator with the introducer sheath attached was then placed over the wire into the right internal jugular vein via the Seldinger technique and this was visualized under fluoroscopy. The dilator and sheath were in proper position as visualized by fluoroscopy. A subcutaneous pocket was then created caudad to the catheter insertion site. A transverse skin incision was made after the skin and subcutaneous tissues were infiltrated with local anesthetic. Blunt dissection was then used to create a space large enough for placement of the subcutaneous port. The catheter was then tunneled into the subcutaneous pocket. The wire and dilator were then removed. The catheter was then threaded into the introducer sheath and was positioned with its tip at the junction of the superior vena cava and the right atrium as visualized under fluoroscopy. The excess catheter was transected. The catheter was then attached to the subcutaneous port using manufacturers guidelines. The catheter was flushed with a heparin saline mixture prior to placement. Hemostasis was carefully controlled with electrocautery. The port was sutured to the subcutaneous fascia using 2-0 Vicryl suture at two sites. The port was then placed in the subcutaneous pocket. The incision were reapproximated with interrupted subdermal 3-0 vicryl sutures. The skin was reapproximated with 3-0 nylon suture in a interrupted fashion. Steristrips were used for reinforcement of the skin closure at IJ insertion site and a sterile opsite dressings were applied. The patient tolerated the procedure well. Surgical Findings: See operative report Complications Complications: No
--- NOTE | 2024-11-18 12:56 | EX.PCM.DISCH ---
Discharge Instructions Procedure Port-A-Cath Diet Discharge Diet: Light diet - advance as tolerated Activity May shower in (days): 5 (Keep port site clean and dry x5 days. Neck incision okay to get wet after 1 day. Okay to lower shower and upper sponge bath. OR okay to taper off port site with a Ziploc bag to shower) Lifting Restrictions: No lifting > 15 pounds for 3 days with the arm on the side of the port Dressing / Incision Call your doctor if your incision/area has: Continuous Slow Oozing, Sudden Increased Bleeding, Increased Pain/ Swelling, Increased Redness, Foul Smelling Discharge and Swelling at the incision site Call your doctor if you observe: Fever of 101 or Higher Change Dressing in: 2 days (2-3 days- port site; ok to remove neck opsite in 1 day) Follow Up Care Please Follow Up With: Cadenec Marques MD When: In 10 days for permanent suture removal?call office for appointment Test Results: Test results from this visit will be discussed in further detail at your follow-up appointment, if applicable. Discharge Plan Admission Attending Provider: Cadence Marques Primary Care Provider: Oren Dorman Instructions Print Language: Greenlandic Discharge Orders/Prescriptions Prescriptions: New tramadol 50 mg tablet 50 mg PO Q6H PRN (Reason: pain) 2 Days Qty: 5 0RF Continued carvedilol 12.5 MG tablet 12.5 mg PO BID Patient Comments: BLOOD PRESSURE diltiazem HCl 300 MG capsule 300 mg PO QHS Patient Comments: BLOOD PRESSURE/HEART Olmesartan/Hydrochlorothiazide [Benicar Hct 40-12.5 Mg Tab] 1 TAB tablet 1 tab PO DAILY Patient Comments: BLOOD PRESSURE pantoprazole 40 MG tablet 40 mg PO DAILY multivitamin with folic acid [Thera] 1 TABLET tablet 1 tab PO DAILY prednisone 5 MG tablet 5 mg PO BID acetaminophen [Tylenol] 325 MG tablet 325 mg PO Q6H PRN PRN (Reason: Pain) ipratropium bromide 1 SPRAY spray,non-aerosol 2 spray NASAL BID abiraterone 500 mg tablet 1,000 mg PO DAILY Qty: 60 10RF Referrals / Follow Up: Oren Dorman DO [Primary Care Provider, Family Practice] Disposition Disposition (needs filled in before D/C Order can be placed): Home, Self Care
--- NOTE | 2024-11-18 12:59 | PCM.POST.ANE ---
Anesthesia: Postop Eval I Current Vital Signs Temperature: 98.2 F Pulse Rate: 67 Blood Pressure: 128/99 Respiratory Rate: 16 Pulse Ox: 93 Oxygen Delivery Method: Room Air Assessment Airway patent: Yes Spontaneous unlabored respirations: Yes Mental status: Awake and Calm nausea: No Vomiting: No Anesthesia Complication: No Fluid Hydration Crystalloid volume administer (ml): 200 Total IV fluid infused: 200 Progress Note Anesthesia document: Postop Eval 1 completed: Yes
--- NOTE | 2024-11-18 13:17 | POSTOPAN2_ITS ---
Anesthesia Postop Eval I Sum Postop Eval Completion status Anesthesia document: Postop Eval 1 completed: Yes Anesthesia Postop Eval I Summary Anesthesia Postop Eval I Summary: Anesthesia Postop Eval I: Assessment Summary Airway patent Yes 11/18/24 13:01 TESTER ELECTRONIC SCALE.SHOF Spontaneous unlabored Yes 11/18/24 13:01 TESTER ELECTRONIC SCALE.SHOF respirations Mental status Awake,Calm 11/18/24 13:01 TESTER ELECTRONIC SCALE.SHOF nausea No 11/18/24 13:01 TESTER ELECTRONIC SCALE.SHOF Vomiting No 11/18/24 13:01 TESTER ELECTRONIC SCALE.SHOF Anesthesia Postop Eval I: Fluid Summary Crystalloid volume administer 200 11/18/24 13:01 TESTER ELECTRONIC SCALE.SHOF (ml) Colloids volume administered ( ml) Blood Product volume administered (ml) Total IV fluid infused 200 11/18/24 13:01 TESTER ELECTRONIC SCALE.SHOF Anesthesia Postop Eval I: Summary Notes Anesthesia Complication No 11/18/24 13:01 TESTER ELECTRONIC SCALE.SHOF Anesthesia Complication Comment: Post-operative progress note Anesthesia: Postop Eval II Evaluation Mental status: Awake Pain Level: 0 nausea: No Vomiting: No
--- NOTE | 2024-11-18 13:17 | PCM.POSTANE2 ---
Anesthesia Postop Eval I Sum Postop Eval Completion status Anesthesia document: Postop Eval 1 completed: Yes Anesthesia Postop Eval I Summary Anesthesia Postop Eval I Summary: Anesthesia Postop Eval I: Assessment Summary Airway patent Yes 11/18/24 13:01 PRINTING ROLLER HANDLER.SHOF Spontaneous unlabored Yes 11/18/24 13:01 PRINTING ROLLER HANDLER.SHOF respirations Mental status Awake,Calm 11/18/24 13:01 PRINTING ROLLER HANDLER.SHOF nausea No 11/18/24 13:01 PRINTING ROLLER HANDLER.SHOF Vomiting No 11/18/24 13:01 PRINTING ROLLER HANDLER.SHOF Anesthesia Postop Eval I: Fluid Summary Crystalloid volume administer 200 11/18/24 13:01 PRINTING ROLLER HANDLER.SHOF (ml) Colloids volume administered ( ml) Blood Product volume administered (ml) Total IV fluid infused 200 11/18/24 13:01 PRINTING ROLLER HANDLER.SHOF Anesthesia Postop Eval I: Summary Notes Anesthesia Complication No 11/18/24 13:01 PRINTING ROLLER HANDLER.SHOF Anesthesia Complication Comment: Post-operative progress note Anesthesia: Postop Eval II Evaluation Mental status: Awake Pain Level: 0 nausea: No Vomiting: No
== END 2024-11-18 13:23 | disposition home or self-care (01) ==
LOC: SDC 10:02 → AC 10:04
PROVIDERS: PCP Preventive Medicine Occupational Medicine; Referring Provider Surgery; Visit Provider Surgery
PROC: (CPT 36561; principal; 2024-11-18 11:30)
DX: Z45.2 Encounter for adjustment and management of vascular access device (principal); C79.51 Secondary malignant neoplasm of bone; C61 Malignant neoplasm of prostate; I10 Essential (primary) hypertension; K21.9 Gastro-esophageal reflux disease without esophagitis; E78.00 Pure hypercholesterolemia, unspecified; Z79.899 Other long term (current) drug therapy
CPT/HCPCS: 36561; 00532; 71045; 77001

== ENCOUNTER 2024-11-28 10:37 | Inpatient (IN) | payer BC, MEDICARE, SELFPAY ==
[2024-11-28] VITALS (23 sets, daily range): BP systolic 72–137; BP diastolic 37–81; PULSE 64–78; RESP 14–21; TEMP 36.5–37; O2SAT 87–99; BMI 37.5; BMI 38.9
[2024-11-28] MEDS: 0.9% Normal Saline (1000mL) 1,000 ML 1000 ML IV ×2 (11:00→12:34)
--- NOTE | 2024-11-28 11:05 | EKG12_ITS ---
Test Reason : Blood Pressure : */* mmHG Vent. Rate : 66 BPM Atrial Rate : 66 BPM P-R Int : 184 ms QRS Dur : 142 ms QT Int : 500 ms P-R-T Axes : 34 34 -8 degrees QTcB Int : 524 ms Normal sinus rhythm Right bundle branch block Abnormal ECG Confirmed by LEODAN TORRES, AMBROSIO ([id number]), state editor LISSETTE RAMOS ([id number]) on 11/30/2024 7:26:56 AM Referred By: Confirmed By: AMBROSIO ALCOCER MD
--- NOTE | 2024-11-28 11:06 | RAD_ITS ---
PROCEDURE: CHEST PA AND LATERAL 11/28/2024 REASON FOR EXAM: COUGH TECHNIQUE: Procedure Code: RADCXR Modality: DX Procedure: CHEST PA AND LATERAL COMPARISON: 11/18/2024. FINDINGS: Patchy [id number]-right consolidative opacities which may represent pneumonia or scar. No visualized pneumothorax. Trace bilateral pleural effusions. Right chest infusion port. The heart is unchanged in size. Acute osseous abnormalities. RAD/Chest PA and Lateral IMPRESSION: Pulmonary findings as above. Reading Location: [id number]
[2024-11-28 11:23] LABS: Hematocrit 33.3 % (40-54); Hemoglobin 11.0 g/dL (13.0-16.5); Immature Granulocytes Count 0.140 X10^3/uL (0.0-0.0); Mean Corp Hgb Conc 33.0 g/dL (32-36); Mean Corpuscular Volume 89.3 fL (80-94); Mean Platelet Vol. 10.6 fl (6.2-12.0); NRBC Flagged by Analyzer 0 % (0-5); Platelet Count 164 K/mm3 (150-450); RBC Distribution Width CV 17.9 % (11.6-14.6); RBC Distribution Width SD 58.9 fl (35.1-43.9); Red Blood Count 3.73 M/mm3 (4.6-6.2); White Blood Count 12.6 K/mm3 (4.4-11.0)
[2024-11-28 11:30] LABS: Prothrombin Time (Protime)PT. 15.1 SECONDS (11.7-14.9)
--- NOTE | 2024-11-28 11:30 | EDS_ITS ---
HPI History of Present Illness Chief Complaint: Hypotension Narrative Narrative: Chief complaint and HPI: History taken by patient as well as medical record. 74-year-old male with history of metastatic prostate cancer started on recent chemotherapy presents for evaluation of hypotension. Patient states she was on his way to receive chemo today when he was found to be hypotensive and sent to the emergency department. He states that on Thursday due to weakness he accidentally fell and broke his right lower extremity. Currently in a boot. States since Thursday he has had decreased appetite and intermittently taking narcotics. He denies any fever, chills, shortness of breath, chest pain, abdominal pain, nausea, vomiting, dysuria. States she has a chronic cough. On chart review, patient was diagnosed with prostate cancer in October 2014. Had a radical prostatectomy on 10/18/2014. Had a reoccurrence with previous rounds of chemotherapy and radiation. He just recently started Taxotere. Review of systems: See HPI Medications: As listed on the chart Allergies: As listed on the chart PFSH: Per chart Vital signs: As listed on the chart. Reviewed. Physical exam: Gen: A&O x3, NAD Head: Normocephalic, atraumatic Eyes: No sclera icterus, conjunctiva clear ENT: Dry mucous membranes Neck: Trachea midline, No JVD CV: RRR, no murmurs, no peripheral edema Resp: Lungs CTA BL, no w/r/c, on 2 L nasal cannula GI: Abd soft, non-distended, non-tender, no r/r/g Musc: Moves all extremities, no deformity, boot on the right lower extremity was removed-no swelling/erythema/warmth/rash/infection, DP/PT pulses +2 bilaterally, good capillary Skin: Warm, dry Neuro: Alert, oriented, grossly intact, sensation intact Psych: Cooperative, appropriate mood and affect [facility] Medical History History of open leg wound Wears glasses Cancer Alcohol use History of steroid therapy Low iron High cholesterol Pulmonary embolism Back pain Migraine headache History of hiatal hernia History of diverticulitis Gastric reflux Non-smoker BiPAP (biphasic positive airway pressure) dependence Shortness of breath on exertion History of pain when walking Skin cancer Ulcer Hyperlipidemia Hypertension Home Medications ?Medication ?Instructions ?Recorded ?Last Taken ?Type carvedilol 12.5 mg tablet 12.5 mg PO BID 10/10/1411/16 History diltiazem HCl 300 mg 300 mg PO QHS 10/10/1411/27 History capsule,extended release 24 hr multivitamin with folic acid 400 1 tab PO DAILY 11/25/24 History mcg tablet (Thera) abiraterone 500 mg tablet 1,000 mg (2 x 500 mg) PO RYNE LY #60 12/21/23 11/28/24 Rx TABLETS tramadol 50 mg tablet 50 mg PO Q6H PRN pain 2 days #5 11/18/24 11/27/24 Rx tabs gabapentin 600 mg tablet 600 mg PO Q12H 11/28/24 Unkn own History hydrocodone-acetaminophen 5-325mg 1 tab PO Q6H PRN maximiliano n 11/28/24 11/28/24 History 5mg-325mg valsartan 160 1 tab PO DAILY 11/28/24 Unkn own History mg-hydrochlorothiazide 12.5 mg tablet Allergy/AdvReac Type Severity Reaction Status Date / Time Penicillins (PCN) Allergy Severe Unknown Verified 11/28/24 10:38 corn Allergy Intermediate Hives Verified 11/28/24 10:38 Family History Father Skin cancer Heart disease Surgical History Hx of right cataract extraction Hx of left cataract extraction History of esophagogastroduodenoscopy (EGD) Hx of colonoscopy History of tonsillectomy History of prostatectomy Social History Smoking Status: Never smoker EXAM Physical Exam Const Vital Signs: 11/28/24 10:38 11/28/24 10:55 11/28/24 11:01 Temperature 97.7 F L 97.7 F L Temperature Source Oral Oral Pulse Rate 67 67 Respiratory Rate 16 19 H Respiratory Effort Respiratory Pattern Blood Pressure 75/48 L 72/60 L Blood Pressure Mean 57 64 Pulse Ox 92 87 97 Oxygen Delivery Method Room Air Room Air Nasal Cannula Oxygen Flow Rate (L/min) 2 11/28/24 11:05 11/28/24 11:07 11/28/24 11:36 Temperature 97.9 F Temperature Source Oral Pulse Rate 67 Respiratory Rate 15 Respiratory Effort Normal Respiratory Pattern Normal Blood Pressure 84/59 L Blood Pressure Mean 67 Pulse Ox 96 99 Oxygen Delivery Method Nasal Cannula Nasal Cannula Oxygen Flow Rate (L/min) 2 2 MDM MDM MDM Narrative Medical decision making narrative: 74-year-old male with history of metastatic prostate cancer started on recent chemotherapy presents for evaluation of hypotension. History taken by patient as well as medical record. See HPI. Patient states she was on his way to receive chemo today when he was found to be hypotensive and sent to the emergency department. He states that on Thursday due to weakness he accidentally fell and broke his right lower extremity. Currently in a boot. States since Thursday he has had decreased appetite and intermittently taking narcotics. He denies any fever, chills, shortness of breath, chest pain, abdominal pain, nausea, vomiting, dysuria. States she has a chronic cough. On presentation, patient was hypoxic at 88% on room air therefore was placed on 2 L nasal cannula. Hypotensive at 75/48. Afebrile. NS bolus ordered. Differential diagnosis includes but is not limited to dehydration, electrolyte abnormality, pneumonia, viral illness, narcotics side effect, chemotherapy side effect, UTI. EKG: Interpreted by me/EM physician: EKG shows normal sinus rhythm with right bundle branch block. Heart rate 66. Diagnostic: Interpreted by me/EM physician: Lab Data Labs: Laboratory Results - last 24 hr 11/28/24 11:00 WBC 12.6 H RBC 3.73 L Hgb 11.0 L Hct 33.3 L MCV 89.3 MCH 29.5 MCHC 33.0 RDW Std Deviation 58.9 H RDW Coeff of Aurelio 17.9 H Plt Count 164 MPV 10.6 Immature Gran % (Auto) 1.100 H Neut % (Auto) 84.6 H Lymph % (Auto) 6.7 L Jenkins % (Auto) 6.6 Eos % (Auto) 0.7 Baso % (Auto) 0.3 Absolute Neuts (auto) 10.6 H Absolute Lymphs (auto) 0.84 Nucleated RBC % 0 PT 15.1 H INR 1.2 APTT 30.0 Radiography Diagnostic Testing: Clinical Impression(s) from Imaging Studies Chest X-Ray 11/28/24 11:06 IMPRESSION: Pulmonary findings as above. Reading Location: [address] Discharge Plan Triage Chief Complaint: Hypotension ED Provider: Cr Weston Dx/Rx/DC Orders Prescriptions: No Action carvedilol 12.5 MG tablet 12.5 mg PO BID Patient Comments: BLOOD PRESSURE diltiazem HCl 300 MG capsule 300 mg PO QHS Patient Comments: BLOOD PRESSURE/HEART multivitamin with folic acid [Thera] 1 TABLET tablet 1 tab PO DAILY tramadol 50 mg tablet 50 mg PO Q6H PRN (Reason: pain) 2 Days Qty: 5 0RF gabapentin 600 mg tablet 600 mg PO Q12H Patient Comments: PT STATES HE QUIT TAKING A LONG TIME AGO hydrocodone-acetaminophen 5-325 mg tablet 1 tab PO Q6H PRN (Reason: pain) valsartan-hydrochlorothiazide 160-12.5 mg tablet 1 tab PO DAILY abiraterone 500 mg tablet 1,000 mg PO DAILY Qty: 60 10RF Primary Care Provider: Care Physician,No Primary Referrals: Oren Dorman DO [Non-Staff, Family Practice] Print Language: Australian
--- NOTE | 2024-11-28 11:30 | EX.ED.DYSGE1 ---
HPI History of Present Illness Chief Complaint: Hypotension Narrative Narrative: Chief complaint and HPI: History taken by patient as well as medical record. 74-year-old male with history of metastatic prostate cancer started on recent chemotherapy presents for evaluation of hypotension. Patient states she was on his way to receive chemo today when he was found to be hypotensive and sent to the emergency department. He states that on Thursday due to weakness he accidentally fell and broke his right lower extremity. Currently in a boot. States since Thursday he has had decreased appetite and intermittently taking narcotics. He denies any fever, chills, shortness of breath, chest pain, abdominal pain, nausea, vomiting, dysuria. States she has a chronic cough. On chart review, patient was diagnosed with prostate cancer in October 2014. Had a radical prostatectomy on 10/18/2014. Had a reoccurrence with previous rounds of chemotherapy and radiation. He just recently started Taxotere. Review of systems: See HPI Medications: As listed on the chart Allergies: As listed on the chart PFSH: Per chart Vital signs: As listed on the chart. Reviewed. Physical exam: Gen: A&O x3, NAD Head: Normocephalic, atraumatic Eyes: No sclera icterus, conjunctiva clear ENT: Dry mucous membranes Neck: Trachea midline, No JVD CV: RRR, no murmurs, no peripheral edema, right chest port without cellulitis Resp: Lungs CTA BL, no w/r/c, on 2 L nasal cannula GI: Abd soft, non-distended, non-tender, no r/r/g Musc: Moves all extremities, no deformity, boot on the right lower extremity was removed-no swelling/erythema/warmth/rash/infection, DP/PT pulses +2 bilaterally, good capillary Skin: Warm, dry Neuro: Alert, oriented, grossly intact, sensation intact Psych: Cooperative, appropriate mood and affect [facility] Medical History History of open leg wound Wears glasses Cancer Alcohol use History of steroid therapy Low iron High cholesterol Pulmonary embolism Back pain Migraine headache History of hiatal hernia History of diverticulitis Gastric reflux Non-smoker BiPAP (biphasic positive airway pressure) dependence Shortness of breath on exertion History of pain when walking Skin cancer Ulcer Hyperlipidemia Hypertension Home Medications ?Medication ?Instructions ?Recorded ?Last Taken ?Type carvedilol 12.5 mg tablet 12.5 mg PO BID 10/10/14 11/28/24 History diltiazem HCl 300 mg 300 mg PO QHS 10/10/14 11/27/24 History capsule,extended release 24 hr multivitamin with folic acid 400 1 tab PO DAILY 01/18/15 11/25/24 History mcg tablet (Thera) abiraterone 500 mg tablet 1,000 mg (2 x 500 mg) PO DAILY #60 12/21/23 11/28/24 Rx TABLETS tramadol 50 mg tablet 50 mg PO Q6H PRN pain 2 days #5 11/18/24 11/27/24 Rx tabs gabapentin 600 mg tablet 600 mg PO Q12H 11/28/24 Unknown History hydrocodone-acetaminophen 5-325mg 1 tab PO Q6H PRN pain 11/28/24 11/28/24 History 5mg-325mg valsartan 160 1 tab PO DAILY 11/28/24 Unknown History mg-hydrochlorothiazide 12.5 mg tablet Allergy/AdvReac Type Severity Reaction Status Date / Time Penicillins (PCN) Allergy Severe Unknown Verified 11/28/24 10:38 corn Allergy Intermediate Hives Verified 11/28/24 10:38 Family History Father Skin cancer Heart disease Surgical History Hx of right cataract extraction Hx of left cataract extraction History of esophagogastroduodenoscopy (EGD) Hx of colonoscopy History of tonsillectomy History of prostatectomy Social History Smoking Status: Never smoker EXAM Physical Exam Const Vital Signs: 11/28/24 10:38 11/28/24 10:55 11/28/24 11:01 Temperature 97.7 F L 97.7 F L Temperature Source Oral Oral Pulse Rate 67 67 Respiratory Rate 16 19 H Respiratory Effort Respiratory Pattern Blood Pressure 75/48 L 72/60 L Blood Pressure Mean 57 64 Pulse Ox 92 87 97 Oxygen Delivery Method Room Air Room Air Nasal Cannula Oxygen Flow Rate (L/min) 2 11/28/24 11:05 11/28/24 11:07 11/28/24 11:11 Temperature Temperature Source Pulse Rate 64 Respiratory Rate 16 Respiratory Effort Normal Respiratory Pattern Normal Blood Pressure Blood Pressure Mean Pulse Ox 96 96 Oxygen Delivery Method Nasal Cannula Oxygen Flow Rate (L/min) 2 11/28/24 11:15 11/28/24 11:15 11/28/24 11:15 Temperature Temperature Source Pulse Rate 76 Respiratory Rate 20 H Respiratory Effort Respiratory Pattern Blood Pressure 86/37 L 86/37 L 86/37 L Blood Pressure Mean 53 53 53 Pulse Ox 96 Oxygen Delivery Method Oxygen Flow Rate (L/min) 11/28/24 11:30 11/28/24 11:36 11/28/24 11:45 Temperature 97.9 F Temperature Source Oral Pulse Rate 67 Respiratory Rate 15 Respiratory Effort Respiratory Pattern Blood Pressure 84/59 L 84/59 L 96/52 L Blood Pressure Mean 69 67 66 Pulse Ox 99 Oxygen Delivery Method Nasal Cannula Oxygen Flow Rate (L/min) 2 11/28/24 11:45 11/28/24 12:00 11/28/24 12:15 Temperature Temperature Source Pulse Rate 66 Respiratory Rate 17 Respiratory Effort Respiratory Pattern Blood Pressure 96/52 L 106/53 L 89/50 L Blood Pressure Mean 66 68 62 Pulse Ox 94 Oxygen Delivery Method Oxygen Flow Rate (L/min) 11/28/24 12:17 11/28/24 12:30 11/28/24 12:45 Temperature Temperature Source Pulse Rate 67 66 65 Respiratory Rate 21 H 14 16 Respiratory Effort Respiratory Pattern Blood Pressure 106/56 L 96/51 L Blood Pressure Mean 71 66 Pulse Ox 94 94 Oxygen Delivery Method Oxygen Flow Rate (L/min) 11/28/24 13:00 11/28/24 13:05 11/28/24 14:00 Temperature 97.9 F Temperature Source Pulse Rate 64 64 67 Respiratory Rate 16 16 16 Respiratory Effort Respiratory Pattern Blood Pressure 97/56 L 97/56 L 113/64 Blood Pressure Mean 67 69 80 Pulse Ox 95 95 97 Oxygen Delivery Method Room Air Oxygen Flow Rate (L/min) MDM MDM MDM Narrative Medical decision making narrative: 74-year-old male with history of metastatic prostate cancer started on recent chemotherapy presents for evaluation of hypotension. History taken by patient as well as medical record. See HPI. Patient states she was on his way to receive chemo today when he was found to be hypotensive and sent to the emergency department. He states that on Thursday due to weakness he accidentally fell and broke his right lower extremity. Currently in a boot. States since Thursday he has had decreased appetite and intermittently taking narcotics. He denies any fever, chills, shortness of breath, chest pain, abdominal pain, nausea, vomiting, dysuria. States she has a chronic cough. On presentation, patient was hypoxic at 88% on room air therefore was placed on 2 L nasal cannula. Hypotensive at 75/48. Afebrile. NS bolus ordered. Differential diagnosis includes but is not limited to dehydration, electrolyte abnormality, pneumonia, viral illness, narcotics side effect, chemotherapy side effect, UTI. CBC shows leukocytosis of 12.6. Patient has baseline anemia of 11. Platelets unremarkable. INR unremarkable. CMP shows dehydration with NATHANIEL. BUN is 44 with creatinine of 4. Patient's previous creatinine earlier this month was 1.31. No transaminitis. Lactic acid unremarkable. Patient now meets sepsis criteria. Vancomycin and Levaquin ordered for suspected pneumonia. 30 cc/kg bolus ordered per ideal body weight. Troponin 330. May be secondary to hypotension as well as waiting on CTA to assess for PE. CTA of the chest shows large central pulmonary emboli in the right and left proximal and distal branches with occlusive components, acute pulmonary emboli within all lobes. Right heart enlargement consistent with decompensation. Atelectasis. 1.2 cm left pleural effusion. Diffuse blastic metastatic disease to thoracic spine and ribs. 50% compression deformity at T5. This was personally relayed to me by cardiology. Heparin started for PE. Repeat troponin 280. BNP elevated at 18,617. This is consistent with heart rate strain. Blood pressure has improved with fluids. Will place Ma catheter due to NATHANIEL and to obtain urine. Patient will warrant admission. He was updated of all results confirmed understand the plan. I spoke with the hospitalist who accepted admission. EKG: Interpreted by me/EM physician: EKG shows normal sinus rhythm with right bundle branch block. Heart rate 66. Diagnostic: Interpreted by me/EM physician: Chest x-ray was personally reviewed and interpreted by me, ED physician. Bilateral opacities. Left greater than right. Right port. Radiology in agreement. Impression: 1. Massive pulmonary emboli 2. Right heart strain secondary to #1 3. NATHANIEL 4. Elevated troponin secondary to #1 and #2 Lab Data Labs: Laboratory Results - last 24 hr 11/28/24 11/28/24 11:00 13:05 WBC 12.6 H RBC 3.73 L Hgb 11.0 L Hct 33.3 L MCV 89.3 MCH 29.5 MCHC 33.0 RDW Std Deviation 58.9 H RDW Coeff of Aurelio 17.9 H Plt Count 164 MPV 10.6 Immature Gran % (Auto) 1.100 H Neut % (Auto) 84.6 H Lymph % (Auto) 6.7 L [place] % (Auto) 6.6 Eos % (Auto) 0.7 Baso % (Auto) 0.3 Absolute Neuts (auto) 10.6 H Absolute Lymphs (auto) 0.84 Nucleated RBC % 0 PT 15.1 H INR 1.2 APTT 30.0 Sodium 133 Potassium 3.9 Chloride 95 L Carbon Dioxide 19.8 L Anion Gap 17 H BUN 44 H Creatinine 4.04 H Estim Creat Clear Calc 20.41 L Est GFR (MDRD) Non-Af 15 L BUN/Creatinine Ratio 10.9 Glucose 111 H Lactic Acid 1.1 Calcium 8.3 Total Bilirubin 0.80 AST 26 ALT 18 Alkaline Phosphatase 169 H Troponin T High Sens 330 H* Troponin T Hi Sens 2 Hr 280 H* [place] [address] H Total Protein 6.3 Albumin 3.4 Globulin 2.9 Albumin/Globulin Ratio 1.1 Procalcitonin 0.74 H Radiography Diagnostic Testing: Clinical Impression(s) from Imaging Studies Chest X-Ray 11/28/24 11:06 IMPRESSION: Pulmonary findings as above. Reading Location: [address] Chest CTA 11/28/24 11:44 IMPRESSION: There are large central pulmonary emboli in the right and left proximal and distal branches with occlusive components, acute pulmonary emboli within all lobes. There is right heart enlargement consistent with decompensation. There is atelectasis or scar at the right and left lung base. There is a 1.2 cm left pleural effusion. There is diffuse blastic metastatic disease to the thoracic spine and ribs. There is a 50% compression deformity at T5, age-indeterminate. Critical results were discussed with Dr. Carney by Dr. Green at the time of dictation. Reading Location: [facility] Discharge Plan Triage Chief Complaint: Hypotension ED Provider: Cr Weston Dx/Rx/DC Orders Primary Care Provider: Care Physician,No Primary
[2024-11-28 11:31] LABS: Partial Thromboplast Time 30.0 Seconds (24.1-36.2)
--- NOTE | 2024-11-28 11:39 | ED.RN ---
Dr. Carney notified of patient triggering for a sepsis alert and fluid resuscitation. Physician states she is not going to be ordering antibiotics at this time, and will await chest xray results before ordering antibiotics. Physician notified of WBC over 12 and reminded of patients new need for O2 on arrival to ED for spO2 of 87 earlier.
--- NOTE | 2024-11-28 11:44 | CT_ITS ---
PROCEDURE: CTA CHEST W/WO CONTRAST 11/28/2024 REASON FOR EXAM: PE, PNEUMONIA TECHNIQUE: Procedure Code: [id number] Modality: CT Procedure: CTA CHEST W/WO CONTRAST Multiplanar Sagittal and Coronal images were obtained. CONTRAST: Not reported One or more dose reduction techniques were used (e.g., Automated exposure control, adjustment of the mA and/or kV according to patient size, use of iterative reconstruction technique). RADIATION DOSE SUMMARY: DLP: 560 mGycm COMPARISON: March 11, 2022 FINDINGS: Hardware: None Lymph nodes: There is no pathologic adenopathy by size criteria Heart: Intact RV/LV Diameter Ratio: 1.2 Thoracic Aorta: Within normal limits Pulmonary Vessels: Main pulmonary artery Hounsfield units = 333. There are large central pulmonary emboli in the right and left proximal and distal branches with occlusive components, acute pulmonary emboli within all lobes. Lungs and Airways: There is atelectasis or scar at the right and left lung base. There is a 1.2 cm left pleural effusion. Pleura: There is no pneumothorax Upper Abdomen: Unremarkable Bones: There is diffuse blastic metastatic disease to the thoracic spine and ribs. There is a 50% compression deformity at T5, age-indeterminate. CT/CTA Chest W/WO Contrast IMPRESSION: There are large central pulmonary emboli in the right and left proximal and dis danitza branches with occlusive components, acute pulmonary emboli within all lobes. There is right heart enlargement consistent with decompensation. There is atelectasis or scar at the right and left lung base. There is a 1.2 cm left pleural effusion. There is diffuse blastic metastatic disease to the thoracic spine and ribs. There is a 50% compression deformity at T5, age-indeterminate. Critical results were discussed with Dr. Carney by Dr. Green at the time o f dictation. Reading Location: [facility]
[2024-11-28 11:51] LABS: Troponin T High Sensitivity 330 ng/L (<=22)
[2024-11-28] MEDS: levoFLOXacin IV 750 MG/150 ML BAG 100 MG IV (12:10)
[2024-11-28] MEDS: Vancomycin HCl 2,000 MG in 0.9% Normal Saline (500mL Bag) 500 ML 250 MG IV (12:34)
[2024-11-28 13:00] LABS: AST(SGOT) 26 U/L (<=37); Alanine Aminotransfer ALT/SGPT 18 U/L (<=46); Albumin, Serum 3.4 g/dL (3.4-4.8); Alkaline Phosphatase 169 U/L (40-129); Anion Gap 17 (5-15); BUN 44 mg/dL (4-19); BUN/Creat Ratio 10.9 RATIO (10-20); Calcium,Total 8.3 mg/dL (7.6-11.0); Carbon Dioxide 19.8 mmol/L (21.0-32.0); Chloride 95 mmol/L (98-108); Estimated Creatinine Clearance 20.41 ml/min (50-250); Globulin 2.9 g/dL (2.2-4.2); Glucose 111 mg/dL (70-99); Potassium 3.9 mmol/L (3.3-5.1); Pro- Brain NATRIURETIC PEPTIDE 18617 pg/mL (<=1800)
[2024-11-28] MEDS: HEPARIN/D5w 25,000 UNITS 25,000 UNITS/250 ML IV.SOLN. 13.8 UNITS CONT INF (13:01)
[2024-11-28] MEDS: 0.9% Normal Saline (500mL Bag) 500 ML 1000 ML IV (13:47)
[2024-11-28 13:55] LABS: Troponin T High Sens 2 HR 280 ng/L (<=22)
--- NOTE | 2024-11-28 14:06 | PCM.HP.STD ---
HPI - General General Date of Admission: 11/28/24 Date of Service: 11/28/24 Chief Complaint: Hypotension HPI Narrative SOL NEWBERRY, is a 74 M with a history of metastatic prostate cancer originally diagnosed in 2014 who presented to the emergency department at [facility] on 11/28/2024 due to hypotension. Patient has had ongoing metastatic prostate cancer since 2014 and was recently started on new chemotherapy. He presented to his chemo on the day of presentation when he was found to be hypotension so he was referred to the emergency department. Patient stated that on Thursday he began having some weakness and the excellently fell and broke his right lower extremity for which he is now in a boot. He reports since Thursday he had decreased appetite and had intermittently taking narcotics due to the pain in his ankle. He also reports minimal p.o. liquid intake. He has denied fever or chills, denies shortness of breath, has had no chest pain, denies any significant nausea or vomiting, diarrhea, or constipation. He does have a history of VTE and reports he has been off anticoagulation for about 1 month now. He reported there was concern about some GI losses and he was supposed to see Dr. Vargas but had not done so. He is currently on Taxotere. Patient is not oxygen dependent at baseline. Vital signs on presentation showed a low-grade white count at 12.6 and a mild anemia with a hemoglobin of 11. He did have a left shift with 84.6% neutrophilia. He did not have any infectious symptoms. Coags showed a mildly elevated PTT at 15.1 but was otherwise unremarkable. Chemistry panel showed serum bicarb of 19.8 with an anion gap of 17, BUN of 44 and a serum creatinine of 4.04 (baseline serum creatinine 1.3-1.4), his lactic acid was 1.1. Liver functions were unremarkable other than mild alk phos elevation which would be expected with metastatic prostate cancer. His initial troponin was 330 with a delta of 280. BNP was 18,617. Procalcitonin was 0.74. His UA is not suggestive of infection. Chest x-ray showed patchy left greater than right opacities and a CTA of the chest showed large central pulmonary emboli in the right and left proximal and distal branches with occlusive components and acute pulmonary emboli within all lobes, right heart strain, atelectasis or scar in the right and left lung base, a 1.2 cm left pleural effusion, diffuse blastic metastatic disease in the thoracic spine and ribs and an age-indeterminate compression fracture of 50% at T5. Given his submassive PE with right heart strain and his acute kidney injury admission was felt warranted and he was started on heparin drip in the emergency department. [facility] Medical History History of open leg wound Wears glasses Cancer Alcohol use History of steroid therapy Low iron High cholesterol Pulmonary embolism Back pain Migraine headache History of hiatal hernia History of diverticulitis Gastric reflux Non-smoker BiPAP (biphasic positive airway pressure) dependence Shortness of breath on exertion History of pain when walking Skin cancer Ulcer Hyperlipidemia Hypertension Home Medications ?Medication ?Instructions ?Recorded ?Last Taken ?Type carvedilol 12.5 mg tablet 12.5 mg PO BID 10/10/14 11/28/24 History diltiazem HCl 300 mg 300 mg PO QHS 10/10/14 11/27/24 History capsule,extended release 24 hr multivitamin with folic acid 400 1 tab PO DAILY 01/18/15 11/25/24 History mcg tablet (Thera) abiraterone 500 mg tablet 1,000 mg (2 x 500 mg) PO DAILY #60 12/21/23 11/28/24 Rx TABLETS tramadol 50 mg tablet 50 mg PO Q6H PRN pain 2 days #5 11/18/24 11/27/24 Rx tabs hydrocodone-acetaminophen 5-325mg 1 tab PO Q6H PRN pain 11/28/24 11/28/24 History 5mg-325mg valsartan 160 1 tab PO DAILY 11/28/24 Unknown History mg-hydrochlorothiazide 12.5 mg tablet Allergy/AdvReac Type Severity Reaction Status Date / Time Penicillins (PCN) Allergy Severe Unknown Verified 11/28/24 10:38 corn Allergy Intermediate Hives Verified 11/28/24 10:38 Family History Father Skin cancer Heart disease Surgical History Hx of right cataract extraction Hx of left cataract extraction History of esophagogastroduodenoscopy (EGD) Hx of colonoscopy History of tonsillectomy History of prostatectomy Social History Smoking Status: Never smoker alcohol intake: never substance use type: does not use ROS Constitutional Constitutional: Reports anorexia, fatigue and weakness; Denies change in weight, chills, fever(s), malaise, night sweats or other Eyes Eyes: Denies blurry vision, change in eye color, change in vision, discharge from eye(s), double vision, erythema, eye pain, loss of vision or other ENT HEENT: Denies abnormal hearing, dysphagia, ear pain, epistaxis, headache(s), hearing loss, nasal congestion, nasal discharge, post nasal drip, sinus pressure, sore throat or other Cardiovascular Cardiovascular: Denies chest pain, claudication, dyspnea on exertion, edema, lightheadedness, orthopnea, palpitations, paroxysmal nocturnal dyspnea, rapid heart rate, syncope or other Respiratory/Chest Respiratory/Chest: Denies cough, dyspnea, excessive phlegm production, hemoptysis, productive cough, shortness of breath at rest, shortness of breath with exertion, wheezing or other Gastrointestinal Gastrointestinal: Reports nausea; Denies abdominal pain, coffee ground emesis, constipation, diarrhea, dyspepsia, hematemesis, hematochezia, loose stools, melena, vomiting or other Genitourinary Genitourinary: Denies burning urination, difficulty urinating, dysuria, hematuria, nocturia, urinary frequency, urinary hesitancy, urinary incontinence, urinary urgency or other Musculoskeletal Musculoskeletal: Reports back pain; Denies arthralgias, joint pain, joint stiffness, joint swelling, myalgias, neck pain or other Neurologic Neurologic: Denies abnormal gait, abnormal speech, confusion, disequilibrium, dizziness, focal weakness, headache(s), numbness, paresthesias, seizure-like activity, seizures, syncope, tingling, tremor(s) or other Psychiatric Psychiatric: Denies anxiety, depression, homicidal ideation, suicidal ideation or other Endocrine Endocrinology: Denies change in body appearance, cold intolerance, excessive sweating, heat intolerance, polydipsia, polyuria or other Hematologic/Lymphatic Hematologic/Lymphatic: Denies anemia, easy bleeding, easy bruising, lymphadenopathy or other Allergic/Immunologic Allergic/Immunologic: Denies rhinitis, hives, eczemia, asthma or other Vital Signs Vital Signs Vital Signs: 10/13/25 10:38 11/28/24 10:55 11/28/24 11:01 Temperature 97.7 F L 97.7 F L Temperature Source Oral Oral Pulse Rate 67 67 Respiratory Rate 16 19 H Respiratory Effort Respiratory Pattern Blood Pressure 75/48 L 72/60 L Blood Pressure Mean 57 64 Pulse Ox 92 87 97 Oxygen Delivery Method Room Air Room Air Nasal Cannula Oxygen Flow Rate (L/min) 2 11/28/24 11:05 11/28/24 11:07 11/28/24 11:11 Temperature Temperature Source Pulse Rate 64 Respiratory Rate 16 Respiratory Effort Normal Respiratory Pattern Normal Blood Pressure Blood Pressure Mean Pulse Ox 96 96 Oxygen Delivery Method Nasal Cannula Oxygen Flow Rate (L/min) 2 11/28/24 11:15 11/28/24 11:15 11/28/24 11:15 Temperature Temperature Source Pulse Rate 76 Respiratory Rate 20 H Respiratory Effort Respiratory Pattern Blood Pressure 86/37 L 86/37 L 86/37 L Blood Pressure Mean 53 53 53 Pulse Ox 96 Oxygen Delivery Method Oxygen Flow Rate (L/min) 11/28/24 11:30 11/28/24 11:36 11/28/24 11:45 Temperature 97.9 F Temperature Source Oral Pulse Rate 67 Respiratory Rate 15 Respiratory Effort Respiratory Pattern Blood Pressure 84/59 L 84/59 L 96/52 L Blood Pressure Mean 69 67 66 Pulse Ox 99 Oxygen Delivery Method Nasal Cannula Oxygen Flow Rate (L/min) 2 11/28/24 11:45 11/28/24 12:00 11/28/24 12:15 Temperature Temperature Source Pulse Rate 66 Respiratory Rate 17 Respiratory Effort Respiratory Pattern Blood Pressure 96/52 L 106/53 L 89/50 L Blood Pressure Mean 66 68 62 Pulse Ox 94 Oxygen Delivery Method Oxygen Flow Rate (L/min) 11/28/24 12:17 11/28/24 12:30 11/28/24 12:45 Temperature Temperature Source Pulse Rate 67 66 65 Respiratory Rate 21 H 14 16 Respiratory Effort Respiratory Pattern Blood Pressure 106/56 L 96/51 L Blood Pressure Mean 71 66 Pulse Ox 94 94 Oxygen Delivery Method Oxygen Flow Rate (L/min) 11/28/24 13:00 11/28/24 13:05 11/28/24 14:00 Temperature 97.9 F Temperature Source Pulse Rate 64 64 67 Respiratory Rate 16 16 16 Respiratory Effort Respiratory Pattern Blood Pressure 97/56 L 97/56 L 113/64 Blood Pressure Mean 67 69 80 Pulse Ox 95 95 97 Oxygen Delivery Method Room Air Oxygen Flow Rate (L/min) Weight Weight: 118.841 kg Body Mass Index (BMI) 37.5 Physical Exam Const alert, oriented x3, no apparent distress and well nourished; Negative for average body habitus or healthy appearing Constitutional Narrative: Obese, older, white male, sitting up in bed, appears comfortable, nontoxic appearing, no respiratory distress General Appearance: cooperative HEENT normocephalic, head/scalp atraumatic and hearing grossly normal bilaterally HEENT Narrative: Mucous membranes are dry, Mallampati is 4, no thrush Eyes EOMs intact bilaterally and conjunctivae normal Eyes Narrative: No scleral icterus Neck no lymphadenopathy and supple Neck Narrative: Neck is short and thick, trachea midline Resp normal respiratory effort, no retractions, no use of accessory muscles and clear to auscultation bilaterally Resp Narrative: Auscultation is difficult and distant due to body habitus Auscultation: Negative for crackles, rhonchi or wheezes Cardio regular rate, regular rhythm, S1 normal heart sound, S2 normal heart sound, no murmurs, no rub, no gallops and no clicks GI normal to inspection, nondistended, normoactive bowel sounds, soft to palpation and non-tender GI Narrative: Large protuberant abdomen Extremity no clubbing, cyanosis or edema Extremity Narrative: Pedal pulses are 2+, radial pulses are 2+ Neuro moves all extremities and no focal motor deficits Psych affect normal Psych Narrative: Very pleasant, interacts appropriately Results Lab / Micro Data 11/28/24 11:00 11/28/24 11:00 Labs: Laboratory Results - last 24 hr 11/28/24 11:00: WBC 12.6 H, RBC 3.73 L, Hgb 11.0 L, Hct 33.3 L, MCV 89.3, MCH 29.5, MCHC 33.0, RDW Std Deviation 58.9 H, RDW Coeff of Aurelio 17.9 H, Plt Count 164, MPV 10.6, Immature Gran % (Auto) 1.100 H, Neut % (Auto) 84.6 H, Lymph % (Auto) 6.7 L, [place] % (Auto) 6.6, Eos % (Auto) 0.7, Baso % (Auto) 0.3, Absolute Neuts (auto) 10.6 H, Absolute Lymphs (auto) 0.84, Nucleated RBC % 0, PT 15.1 H, INR 1.2, APTT 30.0, Sodium 133, Potassium 3.9, Chloride 95 L, Carbon Dioxide 19.8 L, Anion Gap 17 H, BUN 44 H, Creatinine 4.04 H, Estim Creat Clear Calc 20.41 L, Est GFR (MDRD) Non-Af 15 L, BUN/Creatinine Ratio 10.9, Glucose 111 H, Lactic Acid 1.1, Calcium 8.3, Total Bilirubin 0.80, AST 26, ALT 18, Alkaline Phosphatase 169 H, Troponin T High Sens 330 H*, [place] [address] H, Total Protein 6.3, Albumin 3.4, Globulin 2.9, Albumin/Globulin Ratio 1.1 11/28/24 13:05: Troponin T Hi Sens 2 Hr 280 H* Imaging Radiology Impression Chest X-Ray 11/28/24 11:06 IMPRESSION: Pulmonary findings as above. Reading Location: [address] Chest CTA 11/28/24 11:44 IMPRESSION: There are large central pulmonary emboli in the right and left proximal and distal branches with occlusive components, acute pulmonary emboli within all lobes. There is right heart enlargement consistent with decompensation. There is atelectasis or scar at the right and left lung base. There is a 1.2 cm left pleural effusion. There is diffuse blastic metastatic disease to the thoracic spine and ribs. There is a 50% compression deformity at T5, age-indeterminate. Critical results were discussed with Dr. Carney by Dr. Green at the time of dictation. Reading Location: [facility] Assessment & Plan Assessment/Plan (1) Prostate cancer metastatic to bone: (2) Pulmonary embolism: (3) NATHANIEL (acute kidney injury): (4) Elevated troponin: (5) Elevated brain natriuretic peptide (BNP) level: (6) Leukocytosis: PLAN: Plan Acute submassive PE - Patient has a evidence of right heart strain with elevated biomarkers - Consult vascular surgery-discussed with Dr. Rodrigues - Heparin drip - Check echocardiogram - N.p.o. after midnight for possible embolectomy tomorrow Elevated troponin/elevated BNP - Secondary to submassive PE and right heart strain however decreased clearance with NATHANIEL - Echocardiogram is pending Leukocytosis - Patient with no symptoms consistent with acute infection - Procalcitonin is slightly elevated but patient with decreased clearance due to NATHANIEL - Hold off on antibiotics - Blood and urine cultures were obtained by the emergency department - Repeat lab in a.m. and monitor clinically NATHANIEL on CKD stage II - Baseline serum creatinine runs between 1.3 and 1.4 - 4.04 on presentation - Suspect prerenal - Will place Ma with history - Remove as soon as possible - Check retroperitoneal ultrasound - Check urine sodium and creatinine - Hold home valsartan/HCTZ - Continue IV fluids with LR at 100 cc/h for 2 L - Patient received 2 L in the emergency department Hypotension - Likely multifactorial from hypovolemia and PE - Will hold home valsartan/HCTZ - Hold home Coreg - Hold home diltiazem JIHAN - Continue home BiPAP - Patient to have family bring in home unit History of PE - Patient was taken off anticoagulation about a month ago due to anemia Chronic anemia - Monitor closely if drop may need GI involvement - Will need close follow-up with outpatient labs Essential hypertension - Hold home blood pressure medication for now with hypotension on presentation Metastatic prostate cancer stage IV - Significant metastatic disease to bone - Follows with [facility] oncology - Recently started on Taxotere - Outpatient follow-up after discharge - Continue pain medications with metastatic bone disease Obesity - BMI is 38.9 - Complicates treatment, prognosis, outcomes DVT prophylaxis - Full anticoagulation due to PE diagnosis CODE STATUS - Full code per discussion on admission Charges/Coding Visit Charges Inpatient E&M: 59626 Init Hosp L3
--- NOTE | 2024-11-28 14:18 | US_ITS ---
PROCEDURE: KIDNEY AND BLADDER 11/28/2024 REASON FOR EXAM: NATHANIEL TECHNIQUE: Procedure Code: USKI Modality: US Procedure: KIDNEY AND BLADDER COMPARISON: None FINDINGS: Kidneys: Normal renal sizes, parenchymal thicknesses, and echotextures. [place]: No evidence of hydronephrosis. Cysts or Masses: There is a 1.7 cm x 2 cm x 2 cm cyst in the upper pole of the right kidney. Other: None RIGHT Kidney Size: 9.8 cm x 5.2 cm x 4.8 cm Cortical Thickness (if discernible): 12 mm (>6mm is normal) LEFT Kidney Size: 11.7 cm x 6.1 cm x 5.8 cm Cortical Thickness (if discernible): 12 mm (>6mm is normal) The bladder is unremarkable. US/Kidney and Bladder IMPRESSION: No evidence of hydronephrosis. 1.7 cm x 2 cm x 2 cm cyst in the upper pole of the right kidney. Reading Location: [place] [id number]
--- NOTE | 2024-11-28 14:21 | ECHOCS_ITS ---
Reason For Study Reason For Study: Acute PE Procedure This was a 2D Doppler, Color Flow transthoracic echocardiogram. The study was technically difficult. Contrast injection was performed. Exam performed portable in patient room. Left Ventricle Normal LV size. D shaped septum in systole and diastole. Left ventricular systolic function is normal. Stage 1 diastolic dysfunction. The left ventricular ejection fraction is 60 %. No regional wall motion abnormalities noted. Right Ventricle Moderately dilated right ventricle. Mild global right ventricular systolic dysfunction. Apical sparing was noted. Atria Normal left atrium. Normal right atrium. Mitral Valve Normal mitral valve. Tricuspid Valve Normal tricuspid valve. Moderate (2+) tricuspid valve insufficiency. Pulmonary artery systolic pressure is 50 mmHg. Aortic Valve Trisinus/trileaflet aortic valve. Pulmonic Valve The pulmonic valve is not well visualized. Great Vessels Normal aortic root. Pericardium/Pleural No pericardial effusion. Medication Diluted definity 3ml given slow IV push to enhance endocardial definition. MMode/2D Measurements & Calculations LVIDd: 5.8 cm IVSd: 1.1 cm Ao root diam: 3.4 cm LVIDs: 3.6 cm LVPWd: 1.1 cm FS: 36.7 % LAV(MOD-bp): 57.3 ml LVAd ap4: 33.7 cm2 SV(MOD-sp4): 62.4 ml LAV(MOD-bp) Indexed: 24.5 ml/m2 LVLd ap4: 8.1 cm SI(MOD-sp4): 26.6 ml/m2 LAV(MOD-sp2): 62.2 ml EDV(MOD-sp4): 109.9 ml LAV(MOD-sp4): 52.9 ml EDV(sp4-el): 118.4 ml LVAs ap4: 20.5 cm2 LVLs ap4: 7.5 cm ESV(MOD-sp4): 47.6 ml ESV(sp4-el): 47.3 ml EF(MOD-sp4): 56.7 % EF(sp4-el): 60.0 % SV(sp4-el): 71.1 ml LA A4 area: 18.8 cm2 LA dimension(2D): 4.6 cm RA A4 area: 18.9 cm2 TAPSE: 2.3 cm Time Measurements MV dec time: 0.31 sec Doppler Measurements & Calculations MV E max ridge: 54.5 cm/sec Lat Peak E' Ridge: 7.7 cm/sec Med Peak E' Ridge: 7.9 cm/sec MV A max ridge: 79.4 cm/sec E/E' lat: 7.1 E/E' med: 6.9 MV E/A: 0.69 MV V2 max: 100.1 cm/sec MV P1/2t max ridge: 77.6 cm/sec Ao V2 max: 138.8 cm/sec MV max P.0 mmHg MV P1/2t: 108.9 msec Ao max P.7 mmHg MV V2 mean: 53.0 cm/sec MV dec slope: 208.9 cm/sec2 MV mean P.3 mmHg MVA(P1/2t): 2.0 cm2 MV V2 VTI: 23.5 cm LV V1 max: 114.6 cm/sec TR max ridge: 339.1 cm/sec LV V1 max P.3 mmHg TR max P.0 mmHg LV V1 mean P.6 mmHg LV V1 mean: 74.4 cm/sec LV V1 VTI: 23.6 cm ECHO/Echo Complete W/ Contrast Interpretation Summary Normal LV size. Left ventricular systolic function is normal. D shaped septum in systole and diastole. Stage 1 diastolic dysfunction. The left ventricular ejection fraction is 60 %. Moderately dilated right ventricle. Apical sparing was noted Contrast injection was performed. Ordering Physician: Su Rehman Performed By: Cr Bates RCS
[2024-11-28 15:17] LABS: Procalcitonin 0.74 ng/mL (<=0.10)
[2024-11-28] MEDS: Lactated Ringers 1,000 ML 100 ML IV (16:03)
[2024-11-28 16:32] LABS: Mucous, Urine 0 SEEN /hpf (<or=2+)
[2024-11-28 16:37] LABS: Color, Urine Yellow (Yellow); Glucose, Dipstick Normal (Normal); Ketone-Dipstick Negative (Negative); Leukocyte Esterase-Dipstick Negative /ul (Negative); Nitrite-Dipstick Negative (Negative); Occult Blood-Urine 10 /ul (Negative); Protein-Dipstick 30 mg/dl (Negative); Specific Gravity, Urine 1.010 (1.002-1.030); Urine Bilirubin Dipstick Negative (Negative)
[2024-11-28 18:06] LABS: Red Blood Cells-Urine 0-5 SEEN /hpf (0-5); Squamous Epithelial Cells - UA 0-5 SEEN /hpf (0-5); Transitional Epithelial - Ur 0-5 SEEN /hpf (0-5)
[2024-11-28 18:42] LABS: Creatinine, Urine (random) 50.90 mg/dL (39.00-259.00)
[2024-11-28 20:00] LABS: Partial Thromboplast Time 66.9 Seconds (24.1-36.2)
[2024-11-29] VITALS (8 sets, daily range): BP systolic 125–141; BP diastolic 62–73; PULSE 72–85; RESP 16–18; TEMP 36.5–36.8; O2SAT 90–97; BMI 38.7
[2024-11-29 01:23] LABS: Partial Thromboplast Time 83.7 Seconds (24.1-36.2)
[2024-11-29] MEDS: Lactated Ringers 1,000 ML 100 ML IV (02:14)
[2024-11-29] MEDS: Senna/Docusate Sodium 1 Tablet 2 TABLET PO (02:50)
[2024-11-29 05:59] LABS: Hematocrit 30.4 % (40-54); Hemoglobin 10.3 g/dL (13.0-16.5); Immature Granulocytes Count 0.110 X10^3/uL (0.0-0.0); Mean Corp Hgb Conc 33.9 g/dL (32-36); Mean Corpuscular Volume 87.9 fL (80-94); Mean Platelet Vol. 11.1 fl (6.2-12.0); NRBC Flagged by Analyzer 0 % (0-5); Platelet Count 164 K/mm3 (150-450); RBC Distribution Width CV 18.0 % (11.6-14.6); RBC Distribution Width SD 57.9 fl (35.1-43.9); Red Blood Count 3.46 M/mm3 (4.6-6.2); White Blood Count 9.1 K/mm3 (4.4-11.0)
[2024-11-29 06:16] LABS: AST(SGOT) 33 U/L (<=37); Alanine Aminotransfer ALT/SGPT 21 U/L (<=46); Albumin, Serum 3.0 g/dL (3.4-4.8); Alkaline Phosphatase 193 U/L (40-129); Anion Gap 14 (5-15); BUN 38 mg/dL (4-19); BUN/Creat Ratio 14.0 RATIO (10-20); Calcium,Total 7.9 mg/dL (7.6-11.0); Carbon Dioxide 18.8 mmol/L (21.0-32.0); Chloride 102 mmol/L (98-108); Estimated Creatinine Clearance 29.76 ml/min (50-250); Globulin 2.6 g/dL (2.2-4.2); Glucose 104 mg/dL (70-99); Magnesium 2.0 mg/dL (1.5-2.2); Potassium 3.5 mmol/L (3.3-5.1)
--- NOTE | 2024-11-29 08:15 | EX.PCM.CON.S ---
Assessment & Plan Assessment/Plan (1) Pulmonary embolism: PLAN: Plan CTA demonstrated bilateral submassive PE, troponin and BNP were elevated (may have been partially secondary to decreased renal clearance in the setting of NATHANIEL as well), and echo showed some right heart strain so patient would be a reasonable candidate for thrombectomy by these measures; however, clinically he is stable with resolved hypotension after IV hydration and is asymptomatic without SOB or CP and so recommending ongoing conservative management with anticoagulation alone. Plan to restart on oral anticoagulant; if he has worsening anemia then would need to consider IVC filter placement which can be coordinated on an outpatient basis if needed. HPI Consult Data Date of Consult: 11/29/24 HPI Narrative HPI Narrative: SOL NEWBERRY, is a 74 M who presented to the [facility] ER with chief complaint of hypotension sent in from outpatient oncology office. In workup, he had CTA Chest which revealed bilateral submassive PE for which we are consulted for consideration of thrombectomy. He had elevated troponins and BNP and also significant NATHANIEL with Cr ~4 on admission. Kidney function and hypotension have improved with IV hydration. Patient reports that at time of ER evaluation he did not have any SOB or CP and today continues to report no SOB or CP. He reports he is feeling good today, he has no complaints. He had been chronically anticoagulated for over 20 years following prior VTE in the late but due to chronic anemia his anticoagulation was recently discontinued just one month ago. He reports no amy GI bleeding and no acute worsening of his anemia. He also sustained a RLE fracture last week for which he has an ankle brace in place, his activity had been diminished following this. Also of note, he has metastatic prostate cancer for which he follows with oncology here. [facility] Medical History History of open leg wound Wears glasses Cancer Alcohol use History of steroid therapy Low iron High cholesterol Pulmonary embolism Back pain Migraine headache History of hiatal hernia History of diverticulitis Gastric reflux Non-smoker BiPAP (biphasic positive airway pressure) dependence Shortness of breath on exertion History of pain when walking Skin cancer Ulcer Hyperlipidemia Hypertension Home Medications ?Medication ?Instructions ?Recorded ?Last Taken ?Type carvedilol 12.5 mg tablet 12.5 mg PO BID 10/10/14 11/28/24 History diltiazem HCl 300 mg 300 mg PO QHS 10/10/14 11/27/24 History capsule,extended release 24 hr multivitamin with folic acid 400 1 tab PO DAILY 01/18/15 11/25/24 History mcg tablet (Thera) abiraterone 500 mg tablet 1,000 mg (2 x 500 mg) PO DAILY #60 12/21/23 11/28/24 Rx TABLETS tramadol 50 mg tablet 50 mg PO Q6H PRN pain 2 days #5 11/18/24 11/27/24 Rx tabs hydrocodone-acetaminophen 5-325mg 1 tab PO Q6H PRN pain 11/28/24 11/28/24 History 5mg-325mg pantoprazole 40 mg tablet,delayed 40 mg PO QHS stomach 11/28/24 11/27/24 History release valsartan 160 1 tab PO DAILY 11/28/24 Unknown History mg-hydrochlorothiazide 12.5 mg tablet Allergy/AdvReac Type Severity Reaction Status Date / Time Penicillins (PCN) Allergy Severe Unknown Verified 11/28/24 10:38 corn Allergy Intermediate Hives Verified 11/28/24 10:38 Family History Father Skin cancer Heart disease Surgical History Hx of right cataract extraction Hx of left cataract extraction History of esophagogastroduodenoscopy (EGD) Hx of colonoscopy History of tonsillectomy History of prostatectomy Social History Smoking Status: Never smoker alcohol intake: never substance use type: does not use Physical Exam Const alert, oriented x3 and no apparent distress General Appearance: cooperative and comfortable HEENT normocephalic, head/scalp atraumatic, hearing grossly normal bilaterally, external ears normal and external nose normal Eyes General Eye: normal appearance of both eyes Neck General: normal visual inspection and trachea midline Resp normal respiratory effort, normal air movement, no retractions and no use of accessory muscles Effort and Inspection: able to speak in complete sentences; Negative for labored, grunting, stridor or actively coughing Cardio regular rate and regular rhythm Extremity Extremity Narrative: Brace in place to the RLE; not removed for exam L medial ankle hemosiderin staining Skin no rashes or lesions noted Neuro oriented x3, CN's II-XII intact bilaterally, moves all extremities and no focal motor deficits Speech: speech normal Psych mental status grossly normal Appearance: grossly normal Attitude: calm and engaged Activity / Motor Behavior: appropriate eye contact Speech: normal speech Mood & Affect: euthymic mood Lab / Micro Data 11/29/24 04:56 11/29/24 04:56 Labs: Laboratory Results - last 24 hr 11/28/24 11:00: WBC 12.6 H, RBC 3.73 L, Hgb 11.0 L, Hct 33.3 L, MCV 89.3, MCH 29.5, MCHC 33.0, RDW Std Deviation 58.9 H, RDW Coeff of Aurelio 17.9 H, Plt Count 164, MPV 10.6, Immature Gran % (Auto) 1.100 H, Neut % (Auto) 84.6 H, Lymph % (Auto) 6.7 L, [place] % (Auto) 6.6, Eos % (Auto) 0.7, Baso % (Auto) 0.3, Absolute Neuts (auto) 10.6 H, Absolute Lymphs (auto) 0.84, Nucleated RBC % 0, PT 15.1 H, INR 1.2, APTT 30.0, Sodium 133, Potassium 3.9, Chloride 95 L, Carbon Dioxide 19.8 L, Anion Gap 17 H, BUN 44 H, Creatinine 4.04 H, Estim Creat Clear Calc 20.41 L, Est GFR (MDRD) Non-Af 15 L, BUN/Creatinine Ratio 10.9, Glucose 111 H, Lactic Acid 1.1, Calcium 8.3, Total Bilirubin 0.80, AST 26, ALT 18, Alkaline Phosphatase 169 H, Troponin T High Sens 330 H*, [place] [address] H, Total Protein 6.3, Albumin 3.4, Globulin 2.9, Albumin/Globulin Ratio 1.1, Procalcitonin 0.74 H 11/28/24 13:05: Troponin T Hi Sens 2 Hr 280 H* 11/28/24 16:10: Urine Color Yellow, Urine Clarity Clear, Urine pH 6.0, Ur Specific [place] 1.010, Urine Protein 30 H, Urine Glucose (UA) Normal, Urine Ketones Negative, Urine Occult Blood 10 H, Urine Nitrite Negative, Urine Bilirubin Negative, Urine Urobilinogen Normal, Ur Leukocyte Esterase Negative, Urine RBC 0-5 SEEN, Urine WBC 10-25 SEEN, Ur Squamous Epith Cells 0-5 SEEN, Ur Transition Epith Cell 0-5 SEEN, Urine Bacteria 1+, Urine Mucus 0 SEEN, Ur Random Sodium 40, Urine Creatinine 50.90 11/28/24 19:03: APTT 66.9 H 11/29/24 00:53: APTT 83.7 H 11/29/24 04:56: WBC 9.1, RBC 3.46 L, Hgb 10.3 L, Hct 30.4 L, MCV 87.9, MCH 29.8, MCHC 33.9, RDW Std Deviation 57.9 H, RDW Coeff of Aurelio 18.0 H, Plt Count 164, MPV 11.1, Immature Gran % (Auto) 1.200 H, Neut % (Auto) 81.5 H, Lymph % (Auto) 7.5 L, [place] % (Auto) 7.6, Eos % (Auto) 1.8, Baso % (Auto) 0.4, Absolute Neuts (auto) 7.4, Absolute Lymphs (auto) 0.68 L, Nucleated RBC % 0, Sodium 135, Potassium 3.5, Chloride 102, Carbon Dioxide 18.8 L, Anion Gap 14, BUN 38 H, Creatinine 2.73 H, Estim Creat Clear Calc 29.76 L, Est GFR (MDRD) Non-Af 24 L, BUN/Creatinine Ratio 14.0, Glucose 104 H, Calcium 7.9, Phosphorus 3.7, Magnesium 2.0, Total Bilirubin 0.42, AST 33, ALT 21, Alkaline Phosphatase 193 H, Total Protein 5.6 L, Albumin 3.0 L, Globulin 2.6, Albumin/Globulin Ratio 1.1 Micro: Microbiology 11/28/24 12:29 Mucosa - Nose Respiratory Panel (PCR) - Final Imaging Radiology Impression Chest X-Ray 11/28/24 11:06 IMPRESSION: Pulmonary findings as above. Reading Location: [address] Chest CTA 11/28/24 11:44 IMPRESSION: There are large central pulmonary emboli in the right and left proximal and distal branches with occlusive components, acute pulmonary emboli within all lobes. There is right heart enlargement consistent with decompensation. There is atelectasis or scar at the right and left lung base. There is a 1.2 cm left pleural effusion. There is diffuse blastic metastatic disease to the thoracic spine and ribs. There is a 50% compression deformity at T5, age-indeterminate. Critical results were discussed with Dr. Carney by Dr. Green at the time of dictation. Reading Location: [facility] Renal Ultrasound 11/28/24 14:18 IMPRESSION: No evidence of hydronephrosis. 1.7 cm x 2 cm x 2 cm cyst in the upper pole of the right kidney. Reading Location: [facility] Charges/Coding Visit Charges Inpatient E&M: 80642 Init Hosp L1
[2024-11-29] MEDS: HEPARIN/D5w 25,000 UNITS 25,000 UNITS/250 ML IV.SOLN. 12.8 UNITS CONT INF (09:28)
[2024-11-29 09:35] LABS: Partial Thromboplast Time 52.4 Seconds (24.1-36.2)
--- NOTE | 2024-11-29 11:36 | CASEMGMT ---
GÉNESIS LOYA Assessment: Face to Face with pt for initial transition planning/care coordination assessment. GÉNESIS LOYA introduced self and role at [facility], pt voices understanding and consents to assessment. Pt is A&O x4 and answers all questions appropriately at this time. Pt sitting up in bed in no distress, in room. Pt agreeable to DC planning with present. Care providers, pharmacy, and demographics verified/updated. Strata: 2 Admitting Dx: Hypotension PCP: [facility], previously saw Dr. Russ but has retired. Pt intends to see someone else in same practice. Specialists: Chivo, Oncologist; Hany, Healthcare Liaison; Juan Antonio, Ophthalmology; Chevy, Design Quality Engineer; Sam, Manager Training And Development. Preferred Pharmacy: [facility] Insurance: NICOLE [place] Prescription Benefit: yes LNOK: Yvette Living Arrangements: Pt lives with in a multi-level home with 4 steps to enter. ADLs: I with ADLs and IADLs. Transportation: Pt drives self and denies concerns with transportation. DME: BiPap, walker, Cane. HHC/SNF: Denies Hx of. Pt states no concerns with going home at time of dc. GÉNESIS LOYA discussed possible need for O2 at time of DC, provided verbal list of local DME companies. Pt chose [facility] as provider of choice. Pt states no further concerns/needs. CM to follow. Advised pt to ask CM if any further question/concerns/needs arise, voices understanding. Pt Goal: Home Plan: Home with family support. follow for O2 needs. Tracey CAPPS CM
[2024-11-29] MEDS: APIXABAN 5 MG TABLET 10 MG PO ×2 (11:50→21:06)
--- NOTE | 2024-11-29 18:52 | CASEMGMT ---
Social Work Met with patient and , introducing to self and social work role. Advance directive validation process completed. was asked to bring documents in as patient believed documents were in place and at home. After further discussion about directives patient asked this film writer for education and copies of directives just in case the forms cannot be found at home. Educational information provided as well as number to contact to schedule an outpatient appointment. During conversation with social work patient referenced going through cancer for about 10 years now. Supportive listening offered. Educated to [facility] as a resource to provide free cancer support to both patient and patient's . Educated to resources available, which patient expressed must much interested in. Patient expressed feeling his may need more support than he does. Brochure on this agency provided and encouraged patient and to follow-up if interested in services. Patient expressed much appreciation knowing about this type of smart support in the community. No other licensed clinical social worker requested or indicated at this time. -MARLEN Garg, TRUCK BODY BUILDER *This note was generated with [employer] dictation software. It may contain incorrect words, spelling, and punctuation that were not noted in review of the chart prior to signing*
--- NOTE | 2024-11-29 19:27 | PN.HOSP_ITS ---
Reason for Visit Chief Complaint: Hypotension Subjective Subjective Patient was seen and examined today, he is currently on room air. His creatinine is improved over his creatinine on admission. I talked briefly with vascular surgery, they did not recommend any other treatment besides anticoagulation. Patient was started on Eliquis this morning. Objective Data Objective Data Vital Signs: Vital Signs Temp Pulse Resp BP Pulse Ox O2 Del Method O2 Flow Rate 97.7 F L 85 18 126/66 H 90 Room Air 2 11/29/24 13:50 11/29/24 13:50 11/29/24 13:50 11/29/24 13:50 11/29/24 13:50 11/29/24 14:00 11/28/24 21:50 Oxygen Flow Rate (L/min) 2 Oxygen Delivery Method Room Air Weight: 118.9 kg Body Mass Index (BMI) 38.7 Intake & Output: Intake and Output for Last 24 Hours 11/27/24 11/28/24 11/29/24 23:59 23:59 23:59 Intake Total 3473.26 / 3473.26 2947.03 / 2947.03 Output Total 100 / 100 4175 / 4175 Balance 3373.26 / 3373.26 -1227.97 / -1227.97 Lab / Micro Data 11/29/24 04:56 11/30/24 04:59 Labs: Laboratory Results - last 24 hr 11/28/24 19:03: APTT 66.9 H 11/29/24 00:53: APTT 83.7 H 11/29/24 04:56: WBC 9.1, RBC 3.46 L, Hgb 10.3 L, Hct 30.4 L, MCV 87.9, MCH 29.8, MCHC 33.9, RDW Std Deviation 57.9 H, RDW Coeff of Aurelio 18.0 H, Plt Count 164, MPV 11.1, Immature Gran % (Auto) 1.200 H, Neut % (Auto) 81.5 H, Lymph % (Auto) 7.5 L , [place] % (Auto) 7.6, Eos % (Auto) 1.8, Baso % (Auto) 0.4, Absolute Neuts (auto) 7.4, Absolute Lymphs (auto) 0.68 L, Nucleated RBC % 0, Sodium 135, Potassium 3.5, Chloride 102, Carbon Dioxide 18.8 L, Anion Gap 14, BUN 38 H, Creatinine 2.73 H, Estim Creat Clear Calc 29.76 L, Est GFR (MDRD) Non-Af 24 L, BUN/Creatinine Ratio 14.0, Glucose 104 H, Calcium 7.9, Phosphorus 3.7, Magnesium 2.0, Total Bilirubin 0.42, AST 33, ALT 21, Alkaline Phosphatase 193 H, Total Protein 5.6 L, Albumin 3.0 L, Globulin 2.6, Albumin/Globulin Ratio 1.1 11/29/24 08:50: APTT 52.4 H Micro: Microbiology 11/28/24 12:29 Mucosa - Nose Respiratory Panel (PCR) - Final Radiography Diagnostic Testing: Radiology Impression Echocardiogram 11/28/24 14:21 Interpretation Summary Normal LV size. Left ventricular systolic function is normal. D shaped septum in systole and diastole. Stage 1 diastolic dysfunction. The left ventricular ejection fraction is 60 %. Moderately dilated right ventricle. Apical sparing was noted Contrast injection was performed. Ordering Physician: Su Rehman Performed By: Cr Bates RCS Physical Exam Const alert, oriented x3 and no apparent distress General Appearance: cooperative, well kempt and well developed Orientation / Consciousness: awake, oriented to person, oriented to place and oriented to time HEENT normocephalic, head/scalp atraumatic and moist oral mucous membranes Eyes PERRL, EOMs intact bilaterally and conjunctivae normal Neck supple, no JVD, thyroid normal and no carotid bruits General: trachea midline Resp normal respiratory effort, no retractions, no use of accessory muscles and clear to auscultation bilaterally Auscultation: Negative for rales, rhonchi or wheezes Cardio regular rate, regular rhythm, S1 normal heart sound, S2 normal heart sound, no murmurs, no rub and no gallops GI normal to inspection, nondistended, normoactive bowel sounds, soft to palpation, non-tender and non-distended Extremity no clubbing, cyanosis or edema Skin no rashes or lesions noted General Skin Exam: no breakdown Neuro oriented x3, CN's II-XII intact bilaterally, no focal motor deficits and no sensory deficits noted Sensorium / Orientation: awake and alert Speech: speech normal Psych affect normal Assessment & Plan Assessment/Plan (1) Pulmonary embolism: PLAN: Plan 1. Pulmonary embolism-patient is currently on Eliquis, he does not require any intervention, he is also on room air #2 acute kidney injury on a backdrop of chronic kidney disease stage II, creatinine is improved, kidney function will be monitored as needed #3 essential hypertension-patient will remain on his current medications #4 prostate cancer with metastases to the bone-complicates care, management, recovery, and prognosis Total clinical time spent by myself addressing the patient's medical issues, reviewing all of his data, and collaborating with patient's care team: 35 minutes Charges/Coding Visit Charges Inpatient E&M: 87897 Subs Hosp L2
[2024-11-29] MEDS: 0.9% Saline Lock 10 ML Syringe IV (21:06)
[2024-11-29] MEDS: MELATONIN 10 MG TABLET PO (21:06)
[2024-11-30 03:00] VITALS: PULSE 87
[2024-11-30 03:15] VITALS: BP 104/64; PULSE 71; RESP 15; TEMP 36.2; O2SAT 96
--- NOTE | 2024-11-30 03:20 | EKG12_ITS ---
Test Reason : POSSIBLE A- FIB Blood Pressure : */* mmHG Vent. Rate : 96 BPM Atrial Rate : * BPM P-R Int : * ms QRS Dur : 96 ms QT Int : 382 ms P-R-T Axes : * -32 -9 degrees QTcB Int : 482 ms Atrial fibrillation Left axis deviation Prolonged QT Abnormal ECG When compared with ECG of 28-Nov-2024 11:34, MANUAL COMPARISON REQUIRED DATA IS UNCONFIRMED Confirmed by LEODAN TORRES, AMBROSIO ([id number]), graphics editor LISSETTE RAMOS ([id number]) on 12/01/2024 6:28:05 AM Referred By: Confirmed By: AMBROSIO ALCOCER MD
[2024-11-30 03:22] VITALS: BMI 38.5
--- NOTE | 2024-11-30 03:24 | NURSING ---
Telemetry rhythm shows questionable afib, ekg ordered per policy to verify
[2024-11-30 06:10] VITALS: BP 110/68
[2024-11-30 06:58] LABS: Anion Gap 13 (5-15); BUN 38 mg/dL (4-19); BUN/Creat Ratio 15.8 RATIO (10-20); Calcium,Total 8.5 mg/dL (7.6-11.0); Carbon Dioxide 21.4 mmol/L (21.0-32.0); Chloride 103 mmol/L (98-108); Estimated Creatinine Clearance 33.77 ml/min (50-250); Glucose 100 mg/dL (70-99); Potassium 3.5 mmol/L (3.3-5.1)
[2024-11-30 09:40] VITALS: PULSE 135
[2024-11-30 09:46] VITALS: BP 143/95; PULSE 90; RESP 20; TEMP 36.9; O2SAT 95
[2024-11-30] MEDS: APIXABAN 5 MG TABLET 10 MG PO (09:50)
--- NOTE | 2024-11-30 13:51 | EKG12_ITS ---
Test Reason : Blood Pressure : */* mmHG Vent. Rate : 75 BPM Atrial Rate : 75 BPM P-R Int : 194 ms QRS Dur : 106 ms QT Int : 414 ms P-R-T Axes : 46 -25 42 degrees QTcB Int : 462 ms Normal sinus rhythm Nonspecific T wave abnormality Prolonged QT Abnormal ECG When compared with ECG of 30-Nov-2024 03:29, MANUAL COMPARISON REQUIRED DATA IS UNCONFIRMED Confirmed by LEODAN TORRES, AMBROSIO ([id number]), film and video editor JOSUE KAISER ([id number]) on 12/01/2024 10:09:28 AM Referred By: VELMA Confirmed By: AMBROSIO ALCOCER MD
[2024-11-30 14:20] VITALS: BP 104/59; PULSE 74; RESP 16; TEMP 36.9; O2SAT 98
--- NOTE | 2024-11-30 15:09 | DCINST_ITS ---
Discharge Instructions DC O2, CPAP, BIPAP needs Home O2 Discharge instructions: No Dressing / Incision Discharge Activity: Return to Normal Activity Weight Bearing Status: Full weight bearing Follow Up Care Test Results: Test results from this visit will be discussed in further detail at your follow- up appointment, if applicable. Discharge Plan Admission Admit Date/Time: 11/28/24 14:13 Primary Reason for Your Visit: Pulmonary embolism Attending Provider: Maurizio Sifuentes Primary Care Provider: Care Physician,No Primary Consulting Providers: Arnold Rodrigues; Su Rehman Instructions Additional Instructions / Restrictions: Follow-up with a primary care physician within 2 to 3 weeks Monitor your blood pressure, if the top number is under 100, I would advise stopping your valsartan?hydrochlorothiazide Discharge Orders/Prescriptions Prescriptions: New pantoprazole 40 mg Tablet,Delayed Release (Dr/Ec) 40 mg PO DAILY Qty: 30 0RF Eliquis 5 mg Tablet 10 mg PO BID Qty: 64 0RF Rx Instructions: Take 2 pills twice a day for a total of 22 pills, then reduce to 1 pill twice a day-start the evening of 11/30/2024 Continued carvedilol 12.5 MG tablet 12.5 mg PO BID Patient Comments: BLOOD PRESSURE diltiazem HCl 300 MG capsule 300 mg PO QHS Patient Comments: BLOOD PRESSURE/HEART multivitamin with folic acid [Thera] 1 TABLET tablet 1 tab PO DAILY tramadol 50 mg tablet 50 mg PO Q6H PRN (Reason: pain) 2 Days Qty: 5 0RF hydrocodone-acetaminophen 5-325 mg tablet 1 tab PO Q6H PRN (Reason: pain) valsartan-hydrochlorothiazide 160-12.5 mg tablet 1 tab PO DAILY abiraterone 500 mg tablet 1,000 mg PO DAILY Qty: 60 10RF Discontinued pantoprazole 40 mg tablet,delayed release (DR/EC) 40 mg PO QHS Referrals / Follow Up: Oren Dorman DO [Non-Staff, Family Practice] Care Physician,No Primary [Primary Care Provider, Medical] Disposition Disposition (needs filled in before D/C Order can be placed): Home, Self Care
--- NOTE | 2024-11-30 15:25 | DS.PCM_ITS ---
Providers Date of Admission: 11/28/24 Date of Discharge: 11/30/24 Primary Care Physician: Phoebe Primary Care Phys Consultations 11/28/24 15:47 Consult: Vascular Surgery Routine Consulting Provider: Arnold Rodrigues Reason for Consult: PE EMERGENT Consult: No MD Notified: Yes Date Notified: 11/28/24 Time Notified: 14:14 Method of Notification: Verbal Reason For Visit: HYPOTENSION Diagnosis Discharge Diagnosis (1) Pulmonary embolism: Status: Acute Code(s): I26.99 - Other pulmonary embolism without acute cor pulmonale Plan 1. Pulmonary embolism-patient is currently on Eliquis, he does not require any intervention, he is also on room air #2 acute kidney injury on a backdrop of chronic kidney disease stage II, creatinine is improved, kidney function will be monitored as needed #3 essential hypertension-patient will remain on his current medications #4 prostate cancer with metastases to the bone-complicates care, management, recovery, and prognosis #5 moderate pulmonary hypertension Medications at Discharge Home Medications carvedilol 12.5 mg tablet 12.5 mg PO BID 10/10/14 diltiazem HCl 300 mg capsule,extended release 24 hr 300 mg PO QHS 10/10/14 multivitamin with folic acid 400 mcg tablet (Thera) 1 tab PO DAILY 01/18/15 abiraterone 500 mg tablet 1,000 mg (2 x 500 mg) PO DAILY #60 TABLETS 12/21/23 tramadol 50 mg tablet 50 mg PO Q6H PRN pain 2 days #5 tabs 11/18/24 hydrocodone-acetaminophen 5-325mg 5mg-325mg 1 tab PO Q6H PRN pain 11/28/24 valsartan 160 mg-hydrochlorothiazide 12.5 mg tablet 1 tab PO DAILY 11/28/24 apixaban 5 mg tablet (Eliquis) 10 mg (2 x 5 mg) PO BID #64 tabs 11/30/24 pantoprazole 40 mg tablet,delayed release 40 mg PO DAILY #30 tabs 11/30/24 Hospital Course Operations None Procedures 2-D Echocardiogram Summary of Care Provided Minutes Spent on Discharge: 31 Hospital Course: This 74-year-old white male was seen in the emergency room at [facility] due to hypotension. He is under treatment for metastatic prostate cancer and presented to his oncologist office for chemo and was found to be hypotensive so was referred to the emergency room. Workup in the ER revealed a serum creatinine of 4.04, BUN was 44, chest x-ray showed patchy left greater than right opacities and CT of the chest showed a large central pulmonary emboli in the right and left proximal and distal branches with occlusive components and acute pulmonary emboli within all lobes. Right heart strain was noted. Patient was admitted due to acute kidney injury and PE, he underwent an echocardiogram which showed pulmonary hypertension but was otherwise unremarkable. Patient was anticoagulated and labs were monitored showing an improvement in his creatinine. On 11/30/2024, patient was seen and examined: On examination he appeared in good health and spirits. Vital signs as documented. Skin warm and dry and without overt rashes. Neck without JVD, neck was supple, trachea midline, thyroid was normal. Lungs clear bilaterally, normal air movement was noted. Heart exam notable for regular rhythm, normal sounds and absence of murmurs, rubs or gallops. Abdomen unremarkable and without evidence of organomegaly, masses, or abdominal aortic enlargement. Bowel sounds are present, abdomen is not distended. Extremities nonedematous, no cyanosis was noted, no clubbing was noted. Neuro: Cranial nerves II through XII are grossly intact, no focal motor deficits were noted, sensation to light touch and pinprick intact, motor exam 5/5 throughout. Psych: Patient is alert and oriented x3, he does not appear anxious or depressed, he does not appear agitated. Patient appears to be stable for discharge home on 11/30/2024 Weight / BMI Weight Weight: 118.4 kg Body Mass Index (BMI) 38.5 ABG / Lab / Microbiology Data 11/29/24 04:56 11/30/24 04:59 Laboratory: Laboratory Results - last 24 hr 11/30/24 04:59: Sodium 138, Potassium 3.5, Chloride 103, Carbon Dioxide 21.4, Anion Gap 13, BUN 38 H, Creatinine 2.40 H, Estim Creat Clear Calc 33.77 L, Est GFR (MDRD) Non-Af 27 L, BUN/Creatinine Ratio 15.8, Glucose 100 H, Calcium 8.5 Microbiology: Microbiology 11/28/24 11:00 Blood Culture (Wb) - Port Blood Culture - Final No growth in 5 days. 11/28/24 11:36 Blood Culture (Wb) - Anticubital Right Blood Culture - Final No growth in 5 days. 11/28/24 16:10 Urine, Clean Catch Urine Culture - Final Culture exhibits no growth. 11/28/24 12:29 Mucosa - Nose Respiratory Panel (PCR) - Final D/C Instructions Weight Bearing Status: Full weight bearing DC O2, CPAP, BIPAP Needs Home O2 Discharge instructions: No Meaningful Use Info Meaningful Use Meaningful Use Diagnoses (Choose all that apply): VTE VTE Anticoag overlap given w/in hospital stay or rx'd at dc?: No Pt receive overlap for 5 days?: No Reason overlap not ordered, prescribed, or given for 5 days: Treatment Not Indicated Discharge Plan Admission Admit Date/Time: 11/28/24 14:13 Primary Reason for Your Visit: Pulmonary embolism Attending Provider: Maurizio Sifuentes Primary Care Provider: Care Physician,No Primary Consulting Providers: Arnold Rodrigues; Su Rehman Instructions Additional Instructions / Restrictions: Follow-up with a primary care physician within 2 to 3 weeks Monitor your blood pressure, if the top number is under 100, I would advise stopping your valsartan?hydrochlorothiazide Discharge Orders/Prescriptions Prescriptions: New pantoprazole 40 mg Tablet,Delayed Release (Dr/Ec) 40 mg PO DAILY Qty: 30 0RF Eliquis 5 mg Tablet 10 mg PO BID Qty: 64 0RF Rx Instructions: Take 2 pills twice a day for a total of 22 pills, then reduce to 1 pill twice a day-start the evening of 11/30/2024 Continued carvedilol 12.5 MG tablet 12.5 mg PO BID Patient Comments: BLOOD PRESSURE diltiazem HCl 300 MG capsule 300 mg PO QHS Patient Comments: BLOOD PRESSURE/HEART multivitamin with folic acid [Thera] 1 TABLET tablet 1 tab PO DAILY tramadol 50 mg tablet 50 mg PO Q6H PRN (Reason: pain) 2 Days Qty: 5 0RF hydrocodone-acetaminophen 5-325 mg tablet 1 tab PO Q6H PRN (Reason: pain) valsartan-hydrochlorothiazide 160-12.5 mg tablet 1 tab PO DAILY abiraterone 500 mg tablet 1,000 mg PO DAILY Qty: 60 10RF Discontinued pantoprazole 40 mg tablet,delayed release (DR/EC) 40 mg PO QHS Referrals / Follow Up: Oren Dorman DO [Non-Staff, Family Practice] - 12/02/24 12:30 pm Referral Note: APPOINTMENT WITH LIZBETH ROBISON N.P. Care Physician,No Primary [Primary Care Provider, Medical] Disposition Disposition (needs filled in before D/C Order can be placed): Home, Self Care Charges/Coding Visit Charges Inpatient E&M: 56678 Disch Hosp >30min
--- NOTE | 2024-11-30 16:00 | CASEMGMT ---
Pt has an order for DC placed. Per the RN, pt does not require additional oxygen. Noted that the pt has a new Rx for Eliquis. TC to the pt's preferred pharmacy who states that the Rx costs 50$ after insurance. GÉNESIS CM to the pt's room at this time. Pt's at the bedside. Provided the pt with the savings card and informed this can only be used once per life. Pt thanks this securities underwriter. Pt states that he feels safe returning home today and denies any additional DC concerns. Pt denies the need for any additional therapy or resources.
--- NOTE | 2024-11-30 16:30 | PHA.DC_ITS ---
Pharmacy [facility] has performed discharge medication counseling for this patient. The patient was counseled on the following discharge medications and changes in medications for homegoing review. - Apixaban 5 mg tablet, Pantoprazole 40 mg tablet The Reason for Use, instructions for use, and potential side effects were reviewed for all new medications. The patient's questions regarding all of their medications were answered. The patient was able to verbally demonstrate an understanding of their discharge medications. Medications at Discharge Home Medications carvedilol 12.5 mg tablet 12.5 mg PO BID 10/10/14 diltiazem HCl 300 mg capsule,extended release 24 hr 300 mg PO QHS 10/10/14 multivitamin with folic acid 400 mcg tablet (Thera) 1 tab PO DAILY 01/18/15 abiraterone 500 mg tablet 1,000 mg (2 x 500 mg) PO DAILY #60 TABLETS 12/21/23 tramadol 50 mg tablet 50 mg PO Q6H PRN pain 2 days #5 tabs 11/18/24 hydrocodone-acetaminophen 5-325mg 5mg-325mg 1 tab PO Q6H PRN pain 11/28/24 valsartan 160 mg-hydrochlorothiazide 12.5 mg tablet 1 tab PO DAILY 11/28/24 apixaban 5 mg tablet (Eliquis) 10 mg (2 x 5 mg) PO BID #64 tabs 11/30/24 pantoprazole 40 mg tablet,delayed release 40 mg PO DAILY #30 tabs 11/30/24
== END 2024-11-30 16:46 | disposition home or self-care (01) | DRG 176 ==
LOC: ED 14:13 → PCU 14:37
PROVIDERS: Admitting Provider Internal Medicine; Emergency Provider Surgery; Visit Provider Internal Medicine
DX: I26.99 Other pulmonary embolism without acute cor pulmonale (principal); N17.9 Acute kidney failure, unspecified; C79.51 Secondary malignant neoplasm of bone; D64.9 Anemia, unspecified; E66.9 Obesity, unspecified; C61 Malignant neoplasm of prostate; I12.9 Hypertensive chronic kidney disease with stage 1 through stage 4 chronic kidney disease, or unspecified chronic kidney disease; N18.2 Chronic kidney disease, stage 2 (mild); G47.33 Obstructive sleep apnea (adult) (pediatric); Z68.37 Body mass index [BMI] 37.0-37.9, adult; Z80.8 Family history of malignant neoplasm of other organs or systems; Z79.899 Other long term (current) drug therapy
CPT/HCPCS: 36415; 36591; 71046; 71275; 76770; 80048; 80053; 81001; 82570; 83605; 83735; 83880; 84100; 84145; 84300; 84484; 85025; 85610; 85730; 87040; 87086; 87633; 93005; 93306; 94668; 97162; 97166; 97802; 99252; 99284; Q9957; Q9967; A4216; C8929; G0463